=== PATIENT | male | born 1945 | race Caucasian/White ===

== ENCOUNTER 2018-12-16 15:51 | Emergency (ER) | payer OTHER ==
[2018-12-16 17:18] LABS: Absolute Lymphocytes (CBC) 1.2 K/uL (0.7-4.9); Basophils % 0.6 % (0-1.3); Hematocrit 38.5 % (39.6-49.0); Lymphocytes % 20.8 % (15.3-44.8); MPV 7.4 fL (7.6-11.3); RBC Red Blood Cell Count 4.49 M/uL (4.33-5.43)
--- NOTE | 2018-12-16 17:31 | EKG ---
Test Date: 2018-12-16 Test Time: 16:51:21 Director Business Travel: [employer] MEASUREMENT RESULTS: Intervals: Rate: 66 NH: 174 QRSD: 70 QT: 400 QTc: 419 [place]: P: 23 NH: 174 QRS: 28 T: 52 INTERPRETIVE STATEMENTS: Normal sinus rhythm Low voltage QRS Borderline ECG Compared to ECG 07/22/2014 10:15:56 Low QRS voltage now present Ventricular premature complex(es) no longer present T-wave abnormality no longer present Electronically Signed On 12-16-18 17:30:21 CDT by Pieter Jackson
[2018-12-16 17:42] LABS: BUN Blood Urea Nitrogen 14 mg/dL (7-18); Bicarbonate 31 mmol/L (21-32); Glucose Level 94 mg/dL (74-106); Magnesium 2.1 mg/dL (1.8-2.4); Potassium 4.2 mmol/L (3.5-5.1); Sodium Level 139 mmol/L (136-145); Troponin (Emerg Dept Use Only) < 0.02 ng/mL (0.0-0.045)
--- NOTE | 2018-12-16 17:52 | RAD REPORT ---
EXAM DESCRIPTION: CT - Head C Spine Mpr Wo Con - 12/16/2018 5:39 pm CLINICAL HISTORY: Right sided numbness COMPARISON: 2014 MRI brain TECHNIQUE: Computed axial tomography of the head and cervical spine was obtained. Sagittal and coronal reconstruction was performed. All CT scans are performed using dose optimization technique as appropriate and may include automated exposure control or mA/KV adjustment according to patient size. FINDINGS: Large area of cystic encephalomalacia left cerebellum secondary to an old infarction. An intracranial bleed is not seen. Ventricles are normal caliber. No extra-axial fluid collection. Fluid within the sinuses/mastoids is not noted A cervical fracture is not visualized. No dislocation is noted. Spondylosis C5-6 and C6-7. Moderate n arrowing of the right neural foramina C5-6. 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
--- NOTE | 2018-12-16 18:18 | RAD REPORT ---
EXAM DESCRIPTION: MRI - Brain Wo Cont - 12/16/2018 6:02 pm CLINICAL HISTORY: Right arm numbness COMPARISON: Head CT December 16, 2017 TECHNIQUE: Axial, sagittal, and coronal magnetic images of the brain were obtained. Contrast was not requested FINDINGS: Large area of cystic encephalomalacia left occipital lobe secondary to an old infarct. Diffusion-weighted/ADC mapping does not reveal evidence of acute infarction. The ventricles are normal caliber. An extra-axial fluid collection is not present The sinuses and mastoids are clear. IMPRESSION: Large old infarct left occipital lobe
--- NOTE | 2018-12-16 18:29 | EDPHYS ---
Physician Documentation [facility] Name: Shay Bearden Age: 73 yrs Sex: Male : 1945 Arrival Date: 12/16/2018 Time: 15:52 Bed 26 Private MD: ED Physician Zeus Atkinson HPI: 12/16 16:47 This 73 yrs old Male presents to ER via Ambulatory with complaints of r side rn tingling. 16:47 The patient presents to the emergency department with paresthesias of the right lower rn extremity, that is mild, right upper extremity, that is mild. Onset: The symptoms/episode began/occurred 3 day(s) ago. Context: occurred while the patient was at rest. Severity of symptoms: At their worst the symptoms were mild in the emergency department the symptoms are unchanged. Current symptoms: paresthesias. The patient has experienced a previous episode. The patient has been recently seen by a physician:. Reports right arm and leg tingling/tightness, over last 3 days, reports always there to an extent but seems to "move around", denies chest pain/sob/head injury. Takes warfarin for several previous strokes, only numbness to right leg is residual. Reports has never had it affect right arm before. No weakness. No coordination issues. . Historical: - Allergies: 15:58 No Known Allergies; la1 - PMHx: 15:58 CVA; la1 - Immunization history:: Adult Immunizations up to date. - Social history:: Smoking status: Patient/guardian denies using tobacco. - Ebola Screening: : No symptoms or risks identified at this time. - Family history:: not pertinent. - Hospitalizations: : No recent hospitalization is reported. ROS: 16:50 Constitutional: Negative for fever, chills, and weight loss, Eyes: Negative for injury, rn pain, redness, and discharge, Neck: Negative for injury, pain, and swelling, Cardiovascular: Negative for chest pain, palpitations, and edema, Respiratory: Negative for shortness of breath, cough, wheezing, and pleuritic chest pain, Abdomen/GI: Negative for abdominal pain, nausea, vomiting, diarrhea, and constipation, MS/Extremity: Negative for injury and deformity, Neuro: Negative for headache, weakness, and seizure. Exam: 16:50 Constitutional: This is a well developed, well nourished patient who is awake, alert, rn and in no acute distress. Head/Face: Normocephalic, atraumatic. ENT: MMM Neck: Trachea midline, no thyromegaly or masses palpated, and no cervical lymphadenopathy. Supple, full range of motion without nuchal rigidity, or vertebral point tenderness. No Meningismus. Cardiovascular: Regular rate and rhythm. No pulse deficits. Respiratory: No increased work of breathing, no retractions or nasal flaring. Abdomen/GI: soft, non-tender, + moderate ventral hernia MS/ Extremity: Pulses equal, no cyanosis. Neurovascular intact. Full, normal range of motion. Equal circumference. Neuro: Awake and alert, GCS 15, oriented to person, place, time, and situation. Cranial nerves II-XII grossly intact. Motor strength 5/5 in all extremities. Mild decreased sensation to soft touch RUE/RLE. Cerebellar exam normal. Normal gait. 18:17 ECG was reviewed by the Attending Physician. rn Vital Signs: 15:59 BP 136 / 68; Pulse 80; Resp 16; Temp 98.6; Pulse Ox 100% on R/A; Weight 140.61 kg; la1 Height 6 ft. 0 in. (182.88 cm); 17:12 BP 131 / 64; Pulse 62; Resp 9; Pulse Ox 96% on R/A; rv 18:00 BP 129 / 66; Pulse 65; Resp 15; Pulse Ox 100% on R/A; rv 18:30 BP 130 / 65; Pulse 64; Resp 16; Pulse Ox 100% on R/A; rv 15:59 Body Mass Index 42.04 (140.61 kg, 182.88 cm) la1 MDM: 16:31 Patient medically screened. rn 18:25 Data reviewed: vital signs, nurses notes, lab test result(s), EKG, radiologic studies, rn CT scan, MRI, and as a result, I will discharge patient. Counseling: I had a detailed discussion with the patient and/or guardian regarding: the historical points, exam findings, and any diagnostic results supporting the discharge/admit diagnosis, lab results, radiology results, the need for outpatient follow up, to return to the emergency department if symptoms worsen or persist or if there are any questions or concerns that arise at home. Response to treatment: the patient's symptoms have mildly improved after treatment, and as a result, I will discharge patient. Special discussion: I discussed with the patient/guardian in detail that at this point there is no indication for admission to the hospital. It is understood, however, that if the symptoms persist or worsen the patient needs to return immediately for re-evaluation. Based on the history and exam findings, there is no indication for further emergent testing or inpatient evaluation. I discussed with the patient/guardian the need to see the neurologist for further evaluation of the symptoms. ED course: Pt with vague symptoms that patient states not same as previous strokes. CT head and cspine without acute findings, + spondylosis of cervical vertebrae that could explain right arm paresthesias. Patient does states have residual symptoms in right leg from previous CVA. MRI negative for acute stroke. Will dc home with steroids and neuro f/u for possible neuropathy or radiculopathy. . 12/16 16:44 Order name: Troponin (emerg Dept Use Only); Complete Time: 18:16 rn 12/16 16:44 Order name: Basic Metabolic Panel; Complete Time: 18:16 rn 12/16 16:44 Order name: CBC with Diff; Complete Time: 18:16 rn 12/16 16:44 Order name: Magnesium; Complete Time: 18:16 rn 12/16 16:44 Order name: EKG; Complete Time: 16:44 rn 12/16 16:44 Order name: Cardiac monitoring; Complete Time: 17:06 rn 12/16 16:44 Order name: EKG - Nurse/Tech; Complete Time: 17:06 rn 12/16 16:44 Order name: IV Saline Lock; Complete Time: 17:06 rn 12/16 16:44 Order name: O2 Sat Monitoring; Complete Time: 17:06 rn 12/16 16:44 Order name: Brain Wo Cont MRI; Complete Time: 18:25 rn 12/16 16:50 Order name: CT Head C Spine; Complete Time: 18:16 rn EC:17 Rate is 66 beats/min. Rhythm is regular. QRS [place] is Normal. HI interval is normal. QRS rn interval is normal. QT interval is normal. No Q waves. T waves are Normal. No ST changes noted. Clinical impression: NSR w/ Non-specific ST/T Changes. Interpreted by me. Reviewed by me. Administered Medications: No medications were administered Disposition: 12/16/18 18:28 Discharged to Home. Impression: Paresthesia of skin. - Condition is Stable. - Discharge Instructions: Paresthesia. - Prescriptions for Medrol ([place]) 4 mg Oral Tablets, Dose Pack - take 1 tablet by ORAL route as directed - follow package instructions; 1 packet. - Medication Reconciliation Form, Thank You Letter, Antibiotic Education, Prescription Opioid Use form. - Follow up: Private Physician; When: As needed; Reason: Recheck today's complaints, Re-evaluation by your physician. - Problem is new. - Symptoms have improved. Signatures: Dispatcher [employer] EDMS Zeus Atkinson MD MD rn Nghia Kerr RN RN la1 Jordi Tomas RN RN rv Corrections: (The following items were deleted from the chart) 16:53 16:44 PROTIME (+INR)+COAG.LAB.BRZ ordered. EDWY EDWY 16:54 16:45 Head Brain Wo Cont+CT.RAD.BRZ ordered. [facility] EDWY 18:39 18:28 12/16/2018 18:28 Discharged to Home. Impression: Paresthesia of skin. Condition rv is Stable. Forms are Medication Reconciliation Form, Thank You Letter, Antibiotic Education, Prescription Opioid Use. Follow up: Private Physician; When: As needed; Reason: Recheck today's complaints, Re-evaluation by your physician. Problem is new. Symptoms have improved. rn
--- NOTE | 2018-12-16 18:29 | ER ---
Nurse's Notes [facility] Name: Shay Bearden Age: 73 yrs Sex: Male : 1945 Arrival Date: 12/16/2018 Time: 15:52 Bed 26 Private MD: Diagnosis: Paresthesia of skin Presentation: 12/16 15:57 Presenting complaint: Patient states: for the last 3-4 days I have been having tingling la1 on my right side including arms and legs, previous CVA on with right sided deficits a few years ago. VAN negative, taking warfarin. Transition of care: patient was not received from another setting of care. Onset of symptoms was December 16, 2018. Risk Assessment: Do you want to hurt yourself or someone else? Patient reports no desire to harm self or others. Initial Sepsis Screen: Does the patient meet any 2 criteria? No. Patient's initial sepsis screen is negative. Does the patient have a suspected source of infection? No. Patient's initial sepsis screen is negative. Care prior to arrival: None. 15:57 Method Of Arrival: Ambulatory la1 15:57 Acuity: DIDI 3 la1 Historical: - Allergies: 15:58 No Known Allergies; la1 - PMHx: 15:58 CVA; la1 - Immunization history:: Adult Immunizations up to date. - Social history:: Smoking status: Patient/guardian denies using tobacco. - Ebola Screening: : No symptoms or risks identified at this time. - Family history:: not pertinent. - Hospitalizations: : No recent hospitalization is reported. Screenin:11 Abuse screen: Denies threats or abuse. Denies injuries from another. Nutritional rv screening: No deficits noted. Tuberculosis screening: No symptoms or risk factors identified. Fall Risk None identified. Assessment: 17:10 General: Appears in no apparent distress. comfortable, Behavior is calm, cooperative. rv Pain: Denies pain. Neuro: Level of Consciousness is awake, alert, obeys commands, Oriented to person, place, time, situation. Neuro: Reports tingling sensation, right. Cardiovascular: Patient's skin is warm and dry. Respiratory: Airway is patent. GI: No signs and/or symptoms were reported involving the gastrointestinal system. : No signs and/or symptoms were reported regarding the genitourinary system. EENT: No signs and/or symptoms were reported regarding the EENT system. Derm: Skin is intact. Musculoskeletal: No signs and/or symptoms reported regarding the musculoskeletal system. 18:34 Reassessment: Patient appears in no apparent distress at this time. Patient and/or rv family updated on plan of care and expected duration. Pain level reassessed. Patient is alert, oriented x 3, equal unlabored respirations, skin warm/dry/pink. 18:34 General: Appears in no apparent distress. comfortable, Behavior is calm, cooperative. rv Neuro: No deficits noted. Vital Signs: 15:59 BP 136 / 68; Pulse 80; Resp 16; Temp 98.6; Pulse Ox 100% on R/A; Weight 140.61 kg; la1 Height 6 ft. 0 in. (182.88 cm); 17:12 BP 131 / 64; Pulse 62; Resp 9; Pulse Ox 96% on R/A; rv 18:00 BP 129 / 66; Pulse 65; Resp 15; Pulse Ox 100% on R/A; rv 18:30 BP 130 / 65; Pulse 64; Resp 16; Pulse Ox 100% on R/A; rv 15:59 Body Mass Index 42.04 (140.61 kg, 182.88 cm) la1 ED Course: 15:52 Patient arrived in ED. as 15:58 Triage completed. la1 15:59 Arm band placed on right wrist. la1 16:31 Zeus Atkinson MD is Attending Physician. rn 16:32 Jordi Tomas RN is Primary Nurse. rv 17:03 EKG done, by copier field service technician. reviewed by Zeus Atkinson MD. sm3 17:11 Patient has correct armband on for positive identification. Bed in low position. Call rv light in reach. Side rails up X 1. timers inspector on. Pulse ox on. NIBP on. 17:11 Inserted saline lock: 20 gauge in left antecubital area, using aseptic technique. Blood rv collected. 17:40 CT Head C Spine In Process Unspecified. EDMS 17:57 Brain Wo Cont MRI In Process Unspecified. EDMS 18:35 No provider procedures requiring assistance completed. IV discontinued, intact, rv bleeding controlled, No redness/swelling at site. Pressure dressing applied. Administered Medications: No medications were administered Outcome: 18:28 Discharge ordered by . rn 18:35 Discharged to home ambulatory. rv 18:35 Condition: good 18:35 Discharge instructions given to patient, Instructed on discharge instructions, follow up and referral plans. medication usage, Demonstrated understanding of instructions, follow-up care, medications, Prescriptions given X 1. 18:39 Patient left the ED. rv Signatures: Dispatcher [employer] Mckenzie Castañeda Roman, MD MD rn Attema, Lee, RN RN Dedra Buenrostro 3 Jordi Tomas RN RN rv
[2018-12-16 19:46] VITALS: TEMP 98.6
[2018-12-16 19:48] VITALS: O2SAT 100
[2018-12-16 19:49] VITALS: BP 130/65
== END 2018-12-16 18:39 | disposition home or self-care (01) ==
LOC: ER 15:51
DX: R20.2 Paresthesia of skin (principal); Z79.01 Long term (current) use of anticoagulants; Z86.73 Personal history of transient ischemic attack (TIA), and cerebral infarction without residual deficits
CPT/HCPCS: 36415; 70450; 70551; 72125; 80048; 83735; 84484; 85025; 93005; 99284

== ENCOUNTER 2019-03-28 14:41 | Observation (INO) | payer OTHER ==
[2019-03-28] MEDS ORDERED: NA CHLORIDE 0.9% 1,000 ML ONE (15:56)
[2019-03-28] MEDS ORDERED: PIPER/TAZO/NS 3.375gm 3.375 GM/100 ML BAG ONE (15:56)
[2019-03-28 16:01] LABS: Basophils % 0.4 % (0-1.3); Hematocrit 40.4 % (39.6-49.0); Lymphocytes % 15.3 % (15.3-44.8); MPV 7.6 fL (7.6-11.3); RBC Red Blood Cell Count 4.64 M/uL (4.33-5.43)
--- NOTE | 2019-03-28 16:03 | ER ---
Nurse's Notes [facility] Name: Shay Bearden Age: 74 yrs Sex: Male : 1945 Arrival Date: 03/28/2019 Time: 14:45 Bed 24 Private MD: Hugo Alexander T Diagnosis: Cellulitis and acute lymphangitis of other parts of limb-failed outpt treatment;Obesity, unspecified;Unspecified kidney failure Presentation: 03/28 14:54 Presenting complaint: Worsening RLE redness and swelling x 1 week. Transition of care: hb patient was not received from another setting of care. Onset of symptoms was March 28, 2019. Risk Assessment: Do you want to hurt yourself or someone else? Patient reports no desire to harm self or others. Care prior to arrival: None. 14:54 Method Of Arrival: Ambulatory 14:54 Acuity: DIDI 3 hb 14:54 Initial Sepsis Screen: Does the patient meet any 2 criteria? No. Patient's initial hb sepsis screen is negative. Does the patient have a suspected source of infection? No. Patient's initial sepsis screen is negative. Historical: - Allergies: 14:56 No Known Allergies; hb - PMHx: 14:56 CVA; hb - Immunization history:: Adult Immunizations up to date. - Coronavirus screen:: The patient has NOT traveled to [place], [place], or [place] in the past 14 days. The patient has NOT had contact with known/suspected case of Coronavirus? Proceed with normal triage procedures. - Social history:: Smoking status: Patient denies any tobacco usage or history of. - Family history:: not pertinent. - Ebola Screening: : No symptoms or risks identified at this time. Screenin:06 Abuse screen: Denies threats or abuse. Denies injuries from another. Nutritional mg2 screening: No deficits noted. Tuberculosis screening: No symptoms or risk factors identified. 16:35 Fall Risk IV access (20 points). mg2 Assessment: 16:32 General: Appears in no apparent distress. comfortable, Behavior is calm, cooperative. mg2 Pain: Complains of pain in right leg. Neuro: Level of Consciousness is awake, alert, obeys commands, Oriented to person, place, time, situation. Cardiovascular: Capillary refill < 3 seconds Patient's skin is warm and dry. Respiratory: Airway is patent Respiratory effort is even, unlabored, Respiratory pattern is regular, symmetrical. GI: No signs and/or symptoms were reported involving the gastrointestinal system. : No signs and/or symptoms were reported regarding the genitourinary system. EENT: No signs and/or symptoms were reported regarding the EENT system. Derm: Skin is intact, is healthy with good turgor, Skin is pink, warm \T\ dry. normal, Rash noted that is on right leg. Musculoskeletal: Circulation, motion, and sensation intact. Capillary refill < 3 seconds. 17:20 Reassessment: Patient appears in no apparent distress at this time. Patient and/or mg2 family updated on plan of care and expected duration. Pain level reassessed. Patient is alert, oriented x 3, equal unlabored respirations, skin warm/dry/pink. hospitalist came and advised the patient for admission. patient agreed. Vital Signs: 14:55 BP 139 / 68; Pulse 84; Resp 16; Temp 97.5; Pulse Ox 97% on R/A; Weight 140.61 kg; hb Height 6 ft. (182.88 cm); Pain 3/10; 16:00 BP 135 / 80; Pulse 71; Resp 17; Temp 97; Pulse Ox 98% on R/A; mg2 17:32 BP 114 / 55; Pulse 63; Resp 18; Pulse Ox 100% on R/A; mg2 18:20 BP 120 / 60; Pulse 81; Resp 18; Temp 98; Pulse Ox 100% on R/A; mg2 14:55 Body Mass Index 42.04 (140.61 kg, 182.88 cm) hb ED Course: 14:45 Patient arrived in ED. mr 14:45 Hugo Alexander MD is Private Physician. mr 14:55 Triage completed. hb 14:56 Arm band placed on. hb 15:00 Stepan Hancock MD is Attending Physician. geovani 15:02 Kenyon Crespo, DREW is Primary Nurse. mg2 15:40 Inserted saline lock: 20 gauge in right antecubital area, using aseptic technique. wh Blood collected. 15:58 XRAY Chest (1 view) In Process Unspecified. EDMS 16:00 Tez Leal is Hospitalizing Provider. geovani 16:01 Skylar Edgar MD is Hospitalizing Provider. geovani 16:35 Patient has correct armband on for positive identification. mg2 17:11 US Extremity Venous W Compression Andrzej In Process Unspecified. EDMS 18:33 No provider procedures requiring assistance completed. Patient admitted, IV remains in mg2 place. Administered Medications: 16:10 Drug: NS 0.9% 1000 ml Route: IV; Rate: 125 ml/hr; Site: right antecubital; 18:30 Follow up: Response: No adverse reaction; IV Status: Infusion continued upon admission mg2 16:10 Drug: Zosyn 3.375 grams Route: IVPB; Infused Over: 60 mins; Site: right antecubital; 18:29 Follow up: Response: No adverse reaction; IV Status: Completed infusion mg2 17:14 Drug: vancoMYCIN 2 grams Route: IVPB; Rate: calculated rate; [place]: right antecubital[place] [facility] [place] Follow up: Response: No adverse reaction; IV Status: Infusion continued upon admission mg2 Outcome: 16:01 Decision to Hospitalize by Provider. geovani 18:34 Admitted to Med/surg accompanied by tech, via wheelchair, room 224, with chart, Report mg2 called to DREW Campbell 18:34 Condition: stable 18:34 Instructed on the need for admit, Demonstrated understanding of instructions. 18:56 Patient left the ED. mg2 Signatures: Dispatcher [employer] Stepan George MD MD cha Rivera, Mary mr Joyce Morgan RN RN hb Habalo, Winsy wh Gardose, Michele, RN RN mg2
--- NOTE | 2019-03-28 16:03 | EDPHYS ---
Physician Documentation [facility] Name: Shay Bearden Age: 74 yrs Sex: Male : 1945 Arrival Date: 03/28/2019 Time: 14:45 Bed 24 Private MD: Hugo Alexander T ED Physician Stepan Hancock HPI: 03/28 15:26 This 74 yrs old Male presents to ER via Ambulatory with complaints of Leg geovani Infection. 15:26 The patient presents with decreased range of motion, pain, swelling, tenderness. The geovani complaints affect the lateral aspect of right calf, right calf, medial aspect of right calf and right rincon. Context: The problem was sustained at home. Onset: The symptoms/episode began/occurred 5 day(s) ago. Modifying factors: The symptoms are alleviated by elevating leg, the symptoms are aggravated by movement. Associated signs and symptoms: The patient has no apparent associated signs or symptoms. Severity of symptoms: At their worst the symptoms were moderate, in the emergency department the symptoms are unchanged. The patient has experienced similar episodes in the past, several times. Historical: - Allergies: 14:56 No Known Allergies; hb - PMHx: 14:56 CVA; hb - Immunization history:: Adult Immunizations up to date. - Coronavirus screen:: The patient has NOT traveled to [place], [place], or [place] in the past 14 days. The patient has NOT had contact with known/suspected case of Coronavirus? Proceed with normal triage procedures. - Social history:: Smoking status: Patient denies any tobacco usage or history of. - Family history:: not pertinent. - Ebola Screening: : No symptoms or risks identified at this time. ROS: 15:27 Constitutional: Negative for fever, chills, and weight loss, Eyes: Negative for injury, geovani pain, redness, and discharge, ENT: Negative for injury, pain, and discharge, Neck: Negative for injury, pain, and swelling, Cardiovascular: Negative for chest pain, palpitations, and edema, Respiratory: Negative for shortness of breath, cough, wheezing, and pleuritic chest pain, Abdomen/GI: Negative for abdominal pain, nausea, vomiting, diarrhea, and constipation, Back: Negative for injury and pain, : Negative for injury, bleeding, discharge, and swelling, Skin: Negative for injury, rash, and discoloration, Neuro: Negative for headache, weakness, numbness, tingling, and seizure, Allergy/Immunology: Negative for hives, rash, and allergies, Endocrine: Negative for neck swelling, polydipsia, polyuria, polyphagia, and marked weight changes, Hematologic/Lymphatic: Negative for swollen nodes, abnormal bleeding, and unusual bruising. 15:27 MS/extremity: Positive for decreased range of motion, pain, swelling, tenderness, of the right leg. Exam: 15:27 Constitutional: This is a well developed, well nourished patient who is awake, alert, geovani and in no acute distress. Head/Face: Normocephalic, atraumatic. Eyes: Pupils equal round and reactive to light, extra-ocular motions intact. Lids and lashes normal. Conjunctiva and sclera are non-icteric and not injected. Cornea within normal limits. Periorbital areas with no swelling, redness, or edema. ENT: Nares patent. No nasal discharge, no septal abnormalities noted. Tympanic membranes are normal and external auditory canals are clear. Oropharynx with no redness, swelling, or masses, exudates, or evidence of obstruction, uvula midline. Mucous membranes moist. Neck: Trachea midline, no thyromegaly or masses palpated, and no cervical lymphadenopathy. Supple, full range of motion without nuchal rigidity, or vertebral point tenderness. No Meningismus. Chest/axilla: Normal chest wall appearance and motion. Nontender with no deformity. No lesions are appreciated. Cardiovascular: Regular rate and rhythm with a normal S1 and S2. No gallops, murmurs, or rubs. Normal PMI, no JVD. No pulse deficits. Respiratory: Lungs have equal breath sounds bilaterally, clear to auscultation and percussion. No rales, rhonchi or wheezes noted. No increased work of breathing, no retractions or nasal flaring. Abdomen/GI: Soft, non-tender, with normal bowel sounds. No distension or tympany. No guarding or rebound. No evidence of tenderness throughout. Back: No spinal tenderness. No costovertebral tenderness. Full range of motion. Male : Normal genitalia with no discharge or lesions. Skin: Warm, dry with normal turgor. Normal color with no rashes, no lesions, and no evidence of cellulitis. Neuro: Awake and alert, GCS 15, oriented to person, place, time, and situation. Cranial nerves II-XII grossly intact. Motor strength 5/5 in all extremities. Sensory grossly intact. Cerebellar exam normal. Normal gait. Psych: Awake, alert, with orientation to person, place and time. Behavior, mood, and affect are within normal limits. 15:27 Musculoskeletal/extremity: Circulation is intact in all extremities. Sensation intact. Compartment Syndrome exam of affected extremity: is normal. DVT Exam: pain, swelling, tenderness, of the right leg, of the lateral aspect of right calf, right calf, medial aspect of right calf and right rincon. Vital Signs: 14:55 BP 139 / 68; Pulse 84; Resp 16; Temp 97.5; Pulse Ox 97% on R/A; Weight 140.61 kg; hb Height 6 ft. (182.88 cm); Pain 3/10; 16:00 BP 135 / 80; Pulse 71; Resp 17; Temp 97; Pulse Ox 98% on R/A; mg2 17:32 BP 114 / 55; Pulse 63; Resp 18; Pulse Ox 100% on R/A; mg2 18:20 BP 120 / 60; Pulse 81; Resp 18; Temp 98; Pulse Ox 100% on R/A; mg2 14:55 Body Mass Index 42.04 (140.61 kg, 182.88 cm) hb MDM: 15:00 Patient medically screened. [facility] 15:29 Data reviewed: vital signs, nurses notes, lab test result(s), EKG, radiologic studies, geovani plain films, ultrasound. 03/28 15:26 Order name: Basic Metabolic Panel [facility] 03/28 15:26 Order name: CBC with Diff [facility] 03/28 15:26 Order name: LFT's [facility] 03/28 15:26 Order name: Magnesium [facility] 03/28 15:26 Order name: NT PRO-BNP [facility] 03/28 15:26 Order name: PT-INR [facility] 03/28 15:26 Order name: Troponin (emerg Dept Use Only) [facility] 03/28 15:26 Order name: Blood Culture Adult (2) [facility] 03/28 15:26 Order name: Procalcitonin [facility] 03/28 15:27 Order name: Basic Metabolic Panel; Complete Time: 18:19 [facility] 03/28 15:27 Order name: CBC with Automated Diff; Complete Time: 18:19 [facility] 03/28 15:34 Order name: Liver (Hepatic) Function; Complete Time: 18:19 [facility] 03/28 15:35 Order name: Magnesium; Complete Time: 18:19 [facility] 03/28 15:35 Order name: NT PRO-BNP; Complete Time: 18:19 [facility] 03/28 15:26 Order name: XRAY Chest (1 view); Complete Time: 18:19 [facility] 03/28 15:26 Order name: EKG; Complete Time: 15:35 [facility] 03/28 15:26 Order name: Cardiac monitoring; Complete Time: 16:10 [facility] 03/28 15:26 Order name: EKG - Nurse/Tech; Complete Time: 16:10 [facility] 03/28 15:26 Order name: IV Saline Lock; Complete Time: 16:11 [facility] 03/28 15:26 Order name: US Extremity Venous W Compression Andrzej; Complete Time: 18:19 [facility] 03/28 15:35 Order name: Protime (+INR); Complete Time: 18:19 [facility] 03/28 15:35 Order name: Troponin (Emerg Dept Use Only); Complete Time: 18:19 [facility] 03/28 15:35 Order name: Blood Culture [facility] 03/28 15:35 Order name: Procalcitonin; Complete Time: 18:19 [facility] 03/28 17:17 Order name: CONS Pharmacy Consult [facility] 03/28 17:17 Order name: Heart Healthy [facility] 03/28 17:17 Order name: Protime (+INR) [facility] 03/28 15:26 Order name: Labs collected and sent; Complete Time: 16:11 [facility] 03/28 15:26 Order name: O2 Per Protocol; Complete Time: 16:11 [facility] 03/28 15:26 Order name: O2 Sat Monitoring; Complete Time: 16:11 [facility] Administered Medications: 16:10 Drug: NS 0.9% 1000 ml Route: IV; Rate: 125 ml/hr; Site: right antecubital; wh 18:30 Follow up: Response: No adverse reaction; IV Status: Infusion continued upon admission mg2 16:10 Drug: Zosyn 3.375 grams Route: IVPB; Infused Over: 60 mins; Site: right antecubital; wh 18:29 Follow up: Response: No adverse reaction; IV Status: Completed infusion mg2 17:14 Drug: vancoMYCIN 2 grams Route: IVPB; Rate: calculated rate; Site: right antecubital; mg2 18:30 Follow up: Response: No adverse reaction; IV Status: Infusion continued upon admission mg2 Disposition: 03/28/19 16:01 Hospitalization ordered by Skylar Edgar for Inpatient Admission. Preliminary diagnosis are Cellulitis and acute lymphangitis of other parts of limb - failed outpt treatment, Obesity, unspecified, Unspecified kidney failure. - Bed requested for Telemetry/MedSurg (Inpatient). - Status is Inpatient Admission. mg2 - Condition is Stable. - Problem is new. - Symptoms have improved. UTI on Admission? No Signatures: Dispatcher [employer] EDMS Aditi Cline RN RN dw Anderson, Corey, MD MD cha Baxter, Heather, RN RN hb Habalo, Winsy wh Botello, Elizabeth eb Gardose, Michele, RN RN mg2 Corrections: (The following items were deleted from the chart) 16:45 16:01 Hospitalization Ordered by Skylar Edgar MD for Inpatient Admission. Preliminary eb diagnosis is Cellulitis and acute lymphangitis of other parts of limb - failed outpt treatment; Obesity, unspecified. Bed requested for Telemetry/MedSurg (Inpatient). Status is Inpatient Admission. Condition is Stable. Problem is new. Symptoms have improved. UTI on Admission? No. geovani 17:58 16:45 03/28/2019 16:01 Hospitalization Ordered by Skylar Edgar MD for Inpatient dw Admission. Preliminary diagnosis is Cellulitis and acute lymphangitis of other parts of limb - failed outpt treatment; Obesity, unspecified. Bed requested for Telemetry/MedSurg (Inpatient). Status is Inpatient Admission. Condition is Stable. Problem is new. Symptoms have improved. UTI on Admission? No. eb 18:21 17:58 03/28/2019 16:01 Hospitalization Ordered by kSylar Edgar MD for Inpatient geovani Admission. Preliminary diagnosis is Cellulitis and acute lymphangitis of other parts of limb - failed outpt treatment; Obesity, unspecified. Bed requested for Telemetry/MedSurg (Inpatient). Status is Inpatient Admission. Condition is Stable. Problem is new. Symptoms have improved. UTI on Admission? No. dw 18:56 18:21 03/28/2019 16:01 Hospitalization Ordered by Skylar Edgar MD for Inpatient mg2 Admission. Preliminary diagnosis is Cellulitis and acute lymphangitis of other parts of limb - failed outpt treatment; Obesity, unspecified; Unspecified kidney failure. Bed requested for Telemetry/MedSurg (Inpatient). Status is Inpatient Admission. Condition is Stable. Problem is new. Symptoms have improved. UTI on Admission? No. geovani
[2019-03-28 16:07] LABS: Protime INR 2.78
--- NOTE | 2019-03-28 16:18 | RAD REPORT ---
EXAM DESCRIPTION: RAD - Chest Single View - 03/28/2019 3:58 pm CLINICAL HISTORY: COUGH Chest pain. COMPARISON: CHEST SINGLE VIEW dated 08/03/2014; CHEST SINGLE VIEW dated 07/22/2014; CHEST SINGLE VIEW d ated 07/17/2014 FINDINGS: Portable technique limits examination quality. Mild linear subsegmental atelectasis is present left lung base. The lungs are otherwise clear. The he art is normal in size. No displaced fractures. IMPRESSION: Mild linear subsegmental atelectasis left lung base.
[2019-03-28 16:26] LABS: ALT/SGPT 21 U/L (12-78); AST/SGOT 18 U/L (15-37); Albumin 3.4 g/dL (3.4-5.0); Alkaline Phosphatase 80 U/L (45-117); BUN Blood Urea Nitrogen 21 mg/dL (7-18); Bicarbonate 29 mmol/L (21-32); Bilirubin Direct 0.3 mg/dL (0-0.2); Bilirubin Total 1.1 mg/dL (0.2-1.0); Glucose Level 96 mg/dL (74-106); NT PRO-BNP 210 pg/mL (<125); Potassium 4.1 mmol/L (3.5-5.1); Protein, Total 6.5 g/dL (6.4-8.2); Sodium Level 139 mmol/L (136-145); Troponin (Emerg Dept Use Only) < 0.02 ng/mL (0.0-0.045)
[2019-03-28] MEDS ORDERED: VANCOMYCIN 1.5 GM in NA CHLORIDE 0.9% 500 ML IVPB ONE (17:00)
[2019-03-28] MEDS ORDERED: VANCOMYCIN 2 GM in NA CHLORIDE 0.9% 500 ML IVPB ONE (17:00)
[2019-03-28] MEDS ORDERED: ONDANSETRON 4 MG/2 ML VIAL IV PRN (17:08)
[2019-03-28] MEDS ORDERED: MORPHINE 2 MG/ML SYR IV PRN (17:08)
[2019-03-28] MEDS ORDERED: HYDRALAZINE HCL 20 MG/ML VIAL IV PRN (17:13)
--- NOTE | 2019-03-28 17:16 | RAD REPORT ---
EXAM DESCRIPTION: US - Extrem Venous W Compress Andrzej - 03/28/2019 5:11 pm CLINICAL HISTORY: Pain;Swelling Bilateral leg edema and swelling. COMPARISON: <Comparisons> TECHNIQUE: Real-time sonographic interrogation of the left and right lower extremity deep venous sys tems was performed. FINDINGS: Normal compressibility, flow augmentation, phasic flow and spontaneous flow is identified in both the left and right lower extremity deep venous systems. IMPRESSION: No sonographic evidence of left or right lower extremity deep venous thrombosis.
[2019-03-28] MEDS ORDERED: FUROSEMIDE 40 MG/4 ML VIAL IV ONE (18:00)
[2019-03-28 19:35] VITALS: BMI 42.3
[2019-03-28 20:05] LABS: Protime INR 2.83
[2019-03-28] MEDS: FAMOTIDINE 20 MG TAB PO SCH (20:34)
[2019-03-28] MEDS ORDERED: HEPARIN 5000 UNIT/ML 1 ML VIAL SQ SCH (21:00)
[2019-03-28 23:04] VITALS: O2SAT 95
[2019-03-29 00:24] LABS: Urine Appearance CLEAR; Urine Bilirubin NEGATIVE (NEG); Urine Blood NEGATIVE (NEG); Urine Color YELLOW; Urine Glucose NEGATIVE (NEG); Urine Protein NEGATIVE (NEG); Urine Specific Gravity 1.015 (1.005-1.030); Urine Urobilinogen 0.2 mg/dL (0.2-1.0)
[2019-03-29 00:44] LABS: Urine Microscopic Reflex NO UMIC
--- NOTE | 2019-03-29 03:11 | HP ---
Date of Admission: 03/28/2019 Presenting Complaint: Right lower extremity redness. History Of Present Illness: Shay Bearden 74-year-old male with history of CVA in the past with mild right hemiparesis, chronic lower extremity lymphedema with recurrent cellulitis in the past , typically treated with oral antibiotics. The patient presented today because of worsening leg swel ling with redness of the right lower leg. He states he was seen by his primary physician, Dr. Catherine aguilar nd was started on antibiotics 3 days ago. The patient developed a rash. He is unable to tell the na me of the antibiotics. His antibiotics were later switched to Bactrim and rifampin yesterday. The p atrichy only took 2 doses this morning and then came to the emergency room. He denies any fever or ch ills. He states he has a history of chronic lower extremity eczema for which he was treated with manuel roid many years ago. He denies any shortness of breath. He does not wear any compression stockings at home. Past Medical History: Significant for hypertension, history of CVA, history of chronic anticoagulati on due to CVA. Past Surgical History: None. Family History: Patient admits to history of high blood pressure, half brother with history of blood clots. Social History: Patient is a lifelong nonsmoker. No history of alcohol or illicit drug use. He amb ulates with the aid of a cane at baseline. He denies any illicit drug use. He resides in the [facility] with his spouse. Home Medications: The patient is unsure of full list. We will follow the list after nurses verify i t. Review of Systems: All systems reviewed x14 were negative except as mentioned above. Allergies: NO KNOWN DRUG ALLERGIES. Physical Examination: Vital Signs: On presentation in the ED, blood pressure 139/68, pulse of 84, respiratory rate of 16, temp 97.5, O2 saturation 97 on room air. Weight of 140 kg. General: Obese, elderly male, not in any distress, on nasal cannula O2 on room air. HEENT: Head is atraumatic, normocephalic. Pupils equal, reactive to light. Neck: No JVD. No carotid bruit. Respiratory: Good air entry. No crepitation. Cardiovascular: S1, S2. Rate and rhythm regular. GI: Abdomen is obese, but soft. Bowel sounds positive. No organomegaly. Rectal: Deferred. Musculoskeletal: Extremities with 2 to 3+ lower extremity edema, more prominent over the right lower leg. Multiple mild erythema over small papules on the right leg extending beneath knee region. No significant calf tenderness on movement of the leg. Left lower extremity also have similar, but abse nt erythema over the chronic leg swelling. No area of open ulceration noted. Areas of excoriation o f the skin around the flexure of the ankle on the right is noted. Neuro: Patient is alert, oriented. Cranial nerves 2 through 12 grossly intact. Laboratory Data: Chest x-ray shows mild linear subsegmental atelectasis, left lung base. Ultrasound of the lower extremity shows no evidence of DVT. WBC 6.3, hemoglobin 13, platelets 204. INR 2.7. PT 31. Sodium 139, potassium 4.1, creatinine 1.6. No previous to compare. Magnesium 2.0. ProBNP o f 210. Procalcitonin of less than 0.05. Impression: 1.Chronic lower extremity edema likely due to venous stasis. 2.Mild right lower extremity cellulitis. 3.Hypertension. 4.History of cerebrovascular accident. Plan: 1.We will admit patient to observation. We will manage patient with IV vancomycin and restart patie nt on trial of p.o. clindamycin. We will obtain blood culture x2; although, we follow area of meaghan vivas in a.m. if improving. The patient can be safely discharged on clindamycin and rifampin as patient did not really get full doses of rifampin and Bactrim. We will monitor repeat CBC in a.m. Given ch ronic lower extremity edema, need for compression stockings discussed with patient. We will start pa nigel on MYA hose while inpatient. DVT prophylaxis. Patient on Coumadin. We will resume Coumadin. INR therapeutic. 2.Advanced directives: The patient is a full code. Total time spent on review of record, discussion with patient, and evaluation, greater than 55 minute s. EO/MODL Voice ID: [id number]
[2019-03-29 06:39] LABS: Basophils % 0.3 % (0-1.3); Hematocrit 37.8 % (39.6-49.0); Lymphocytes % 14.1 % (15.3-44.8); MPV 7.5 fL (7.6-11.3); RBC Red Blood Cell Count 4.42 M/uL (4.33-5.43)
[2019-03-29 06:47] LABS: Albumin 3.2 g/dL (3.4-5.0); Bilirubin Total 0.8 mg/dL (0.2-1.0); Potassium 4.2 mmol/L (3.5-5.1); Protein, Total 6.2 g/dL (6.4-8.2)
[2019-03-29] MEDS: FAMOTIDINE 20 MG TAB PO SCH (07:42)
[2019-03-29] MEDS ORDERED: VANCOMYCIN 1.25 GM in NA CHLORIDE 0.9% 250 ML IVPB SCH (09:00)
--- NOTE | 2019-03-29 12:19 | P.DS ---
Admission Date: 03/28/19 Discharge Date: 03/29/19 Disposition: ROUTINE DISCHARGE Discharge Condition: GOOD Brief History of Present Illness: Patient with history of chronic lower extremity edema presented for new onsets redness over the right lower extremity. Hospital Course: Patient on admission was diagnosed with right lower extremity cellulitis. He has chronic lower extremity edema especially mall for the right side from previous CVA was felt to be due to venous insufficiency on causing his recurrent cellulitis. Since he was previously on bactrim and rifampin started 1 day prior to presentation, patient was continued on Rifmapin and added Omnicef. He did not have any leukocytosis or elevated pro calcitonin was not felt to be septic. He was also advised to start compression stockings. Application on how to use Paul wrap was instructed Vital Signs/Physical Exam: Temp Pulse Resp BP Pulse Ox 97.9 F 82 18 103/53 L 95 03/29/19 08:00 03/29/19 08:00 03/29/19 08:00 03/29/19 08:00 03/29/19 08:00 General: Alert, In no apparent distress, Oriented x3 HEENT: Atraumatic, Normocephalic Neck: Supple, 2+ carotid pulse no bruit Respiratory: Clear to auscultation bilaterally, Normal air movement Cardiovascular: Normal pulses, Regular rate/rhythm, Normal S1 S2, Edema Gastrointestinal: Normal bowel sounds, Soft and benign, W/out succussion splash Musculoskeletal: Swelling Integumentary: Warmth (decreasing over RLE) Neurological: Normal gait, Normal speech, Normal strength at 5/5 x4 extr Laboratory Data at Discharge: WBC 7.1 K/uL (4.3-10.9) 03/29/19 05:54 Hgb 12.8 g/dL (13.6-17.9) L 03/29/19 05:54 Hct 37.8 % (39.6-49.0) L 03/29/19 05:54 Plt Count 198 K/uL (152-406) 03/29/19 05:54 PT 32.1 SECONDS (9.5-12.5) H 03/28/19 19:50 INR 2.83 03/28/19 19:50 Sodium 142 mmol/L (136-145) 03/29/19 05:54 Potassium 4.2 mmol/L (3.5-5.1) 03/29/19 05:54 BUN 25 mg/dL (7-18) H 03/29/19 05:54 Creatinine 1.42 mg/dL (0.55-1.3) H 03/29/19 05:54 Glucose 100 mg/dL (74-106) 03/29/19 05:54 Magnesium 2.0 mg/dL (1.8-2.4) 03/28/19 15:40 Total Bilirubin 0.8 mg/dL (0.2-1.0) 03/29/19 05:54 AST 16 U/L (15-37) 03/29/19 05:54 ALT 17 U/L (12-78) 03/29/19 05:54 Alkaline Phosphatase 60 U/L (45-117) 03/29/19 05:54 Home Medications: Acetaminophen 500 mg PO Q6HP PRN 03/28/19 Rifampin [Rifadin] 300 mg PO BID 03/28/19 Warfarin Sodium [Coumadin*] 5 mg PO DAILY 03/28/19 Cefdinir [Omnicef] 300 mg PO BID #14 capsule 03/29/19 New Medications: Cefdinir [Omnicef] 300 mg PO BID #14 capsule Patient Discharge Instructions: -Apply ACEI wrap to legs daily. - can remove wrap at night time. - discuss with your PCP for a referal to a DME for customized compression stockings Diet: Low sodium Activity: Ad soraida Physician Review: Patient Assessed, Agree with Above Assessment and Plan Time spent managing pt's care (in minutes): 35
[2019-03-29 13:34] VITALS: BP 106/56; TEMP 97.1
[2019-03-29] MEDS ORDERED: VANCOMYCIN 2 GM in NA CHLORIDE 0.9% 500 ML IVPB SCH (17:00)
--- NOTE | 2019-03-30 05:29 | EKG ---
Test Date: 2019-03-28 Test Time: 16:01:28 Manufacturing Sales Representative: VICTORIA MEASUREMENT RESULTS: Intervals: Rate: 69 DC: 158 QRSD: 76 QT: 302 QTc: 323 Naselle: P: 24 DC: 158 QRS: 5 T: 38 INTERPRETIVE STATEMENTS: Normal sinus rhythm Nonspecific T wave abnormality Abnormal ECG Compared to ECG 12/16/2018 16:51:21 T-wave abnormality now present Electronically Signed On 03-30-19 05:28:49 PATIENT RELATIONS LIAISON by Pieter Jackson
== END 2019-03-29 12:32 | disposition home or self-care (01) ==
LOC: ER 14:41 → ERHOLD 17:24 → 2ND 18:29
PROVIDERS: ADMIT Internal Medicine; ATTEND Internal Medicine
DX: L03.115 Cellulitis of right lower limb (principal); I69.351 Hemiplegia and hemiparesis following cerebral infarction affecting right dominant side; I10 Essential (primary) hypertension
CPT/HCPCS: 96365; 96368; 93005; 87040 ×2; 85025 ×2; 80048; 36415; 83735; 85610 ×2; 80076; 81003; 84484; 80053; 84145; 83880; 71045; 93970; 99285; 96366; J1940; J2543; J7040; J7030; G0378 ×3

== ENCOUNTER 2019-12-22 15:20 | Inpatient (IN) | payer OTHER ==
[2019-12-22] MEDS ORDERED: DIPHENHYDRAMINE 50 MG/ML VIAL ONE (18:05)
[2019-12-22] MEDS ORDERED: FAMOTIDINE 20 MG/2 ML VIAL IV ONE (18:05)
[2019-12-22 18:14] LABS: Absolute Lymphocytes (CBC) 0.9 K/uL (0.7-4.9); Basophils % 0.2 % (0-1.3); Hematocrit 42.8 % (39.6-49.0); MPV 7.4 fL (7.6-11.3); RBC Red Blood Cell Count 4.98 M/uL (4.33-5.43)
[2019-12-22 18:40] LABS: Albumin 3.5 g/dL (3.4-5.0); Bilirubin Direct 0.6 mg/dL (0-0.2); Bilirubin Total 1.5 mg/dL (0.2-1.0); Blood Morphology Comment NOT SEEN (NOT SEEN); Platelet Estimate ADEQ; Potassium 3.9 mmol/L (3.5-5.1); Protein, Total 7.1 g/dL (6.4-8.2); Toxic Granulation 1+; White Blood Cell Scan OK (OK)
[2019-12-22 18:47] LABS: Thyroid Stimulating Hormone 7.04 uIU/mL (0.360-3.740)
--- NOTE | 2019-12-22 19:01 | EDPHYS ---
Physician Documentation [facility] Name: Shay Bearden Age: 74 yrs Sex: Male : 1945 Arrival Date: 12/22/2019 Time: 15:23 Bed 16 Private MD: Hugo Alexander T ED Physician Stepan Hancock HPI: 12/21 18:57 This 74 yrs old Male presents to ER via Wheelchair with complaints of kb Allergic Reaction. 18:57 The patient presents with redness of skin. Onset: The symptoms/episode began/occurred kb today. Associated signs and symptoms: Pertinent positives: rash. Possible causes: At home the patient or guardian has treated the symptoms with nothing. Severity of symptoms: At their worst the symptoms were moderate in the emergency department the symptoms are unchanged. The patient has not experienced similar symptoms in the past. The patient has been recently seen by a physician:. Pt reports he was prescribed 2 antibiotics that he has had before for cellulitis and levothyroxine that is a new medication. States he took his first dose of all of those at 1100 today and since then has had itching and shaking that he hasn't been able to control. . Historical: - Allergies: 16:25 Sulfa (Sulfonamide Antibiotics); iw - PMHx: 16:25 CVA; iw - Immunization history:: Adult Immunizations up to date. - Social history:: Smoking status: Patient denies any tobacco usage or history of. ROS: 18:55 Cardiovascular: Negative for chest pain, palpitations, and edema, Respiratory: Negative kb for shortness of breath, cough, wheezing, and pleuritic chest pain, Abdomen/GI: Negative for abdominal pain, nausea, vomiting, diarrhea, and constipation, MS/Extremity: Negative for injury and deformity, Neuro: Negative for headache, weakness, numbness, tingling, and seizure. 18:55 Constitutional: Positive for chills, malaise. 18:55 Skin: Positive for abscess, cellulitis, of the left rincon. Exam: 18:55 Constitutional: This is a well developed, well nourished patient who is awake, alert, kb and in no acute distress. Head/Face: Normocephalic, atraumatic. Chest/axilla: Normal chest wall appearance and motion. Nontender with no deformity. No lesions are appreciated. Cardiovascular: Regular rate and rhythm with a normal S1 and S2. No gallops, murmurs, or rubs. Normal PMI, no JVD. No pulse deficits. Respiratory: Lungs have equal breath sounds bilaterally, clear to auscultation and percussion. No rales, rhonchi or wheezes noted. No increased work of breathing, no retractions or nasal flaring. Abdomen/GI: Soft, non-tender, with normal bowel sounds. No distension or tympany. No guarding or rebound. No evidence of tenderness throughout. MS/ Extremity: Pulses equal, no cyanosis. Neurovascular intact. Full, normal range of motion. Neuro: Awake and alert, GCS 15, oriented to person, place, time, and situation. Cranial nerves II-XII grossly intact. Motor strength 5/5 in all extremities. Sensory grossly intact. Cerebellar exam normal. Normal gait. 18:55 Skin: abscess, that is small, of the lateral aspect of left calf, with drainage, with surrounding cellulitis, cellulitis, that is moderate, on the left rincon. Vital Signs: 16:32 BP 119 / 77; Pulse 105; Resp 19 S; Temp 97.8(TE); Pulse Ox 94% on R/A; Weight 132.9 kg ca1 (R); Height 6 ft. 0 in. (182.88 cm) (R); Pain 0/10; 18:20 BP 111 / 87; Pulse 106; Resp 17; Pulse Ox 95% ; bp 19:10 BP 99 / 62; Pulse 75; Resp 19; Temp 98; Pulse Ox 98% ; rr5 20:20 BP 92 / 70; Pulse 80; Resp 21; Pulse Ox 98% ; rr5 21:21 BP 109 / 74; Pulse 86; Resp 19; Temp 98; Pulse Ox 97% ; rr5 22:10 BP 105 / 70; Pulse 80; Resp 19; Pulse Ox 99% ; rr5 16:32 Body Mass Index 39.74 (132.90 kg, 182.88 cm) ca1 MDM: 17:21 Patient medically screened. kb 18:06 Data reviewed: vital signs, nurses notes. Data interpreted: Pulse oximetry: on room air kb is 94 %. Interpretation: acceptable. 18:55 Counseling: I had a detailed discussion with the patient and/or guardian regarding: the kb historical points, exam findings, and any diagnostic results supporting the discharge/admit diagnosis, lab results, radiology results, the need for further work-up and treatment in the hospital. Physician consultation: Nghia MOTA was contacted at 18:55, regarding admission, to the telemetry unit. patient's condition, and will see patient in ED, shortly. 12/21 17:29 Order name: Basic Metabolic Panel; Complete Time: 19:14 kb 12/21 17:29 Order name: CBC with Diff; Complete Time: 18:46 kb 12/21 17:29 Order name: Hepatic Function; Complete Time: 19:14 kb 12/21 17:29 Order name: Lipase; Complete Time: 19:14 kb 12/21 17:29 Order name: TSH; Complete Time: 19:14 kb 12/21 18:40 Order name: CBC Smear Scan; Complete Time: 18:46 EDMS 12/21 18:48 Order name: T4 Free; Complete Time: 19:14 EDMS 12/21 18:49 Order name: Blood Culture Adult (2) kb 12/21 18:49 Order name: Lactate; Complete Time: 20:32 kb 12/21 18:49 Order name: Procalcitonin; Complete Time: 21:13 kb 12/21 19:57 Order name: COVID-19 rr5 12/21 20:07 Order name: CORONAVIRUS EDMS 12/21 21:01 Order name: SARS-COV-2 RT PCR; Complete Time: 21:13 EDMS 12/21 17:29 Order name: IV Saline Lock; Complete Time: 18:06 kb 12/21 17:29 Order name: Labs collected and sent; Complete Time: 18:06 kb Administered Medications: 17:45 Drug: Benadryl 12.5 mg Route: IVP; Site: left antecubital; bp 18:54 Follow up: Response: No adverse reaction bp 18:00 Drug: Pepcid 20 mg Route: IVP; Site: left antecubital; bp 18:54 Follow up: Response: No adverse reaction bp 19:46 Drug: NS 0.9% 1000 ml Route: IV; Rate: 1000 ml; Site: left antecubital; rr5 21:30 Follow up: Response: No adverse reaction; IV Status: Completed infusion; IV Intake: rr5 1000ml 19:47 Dru grams of (Cefepime 1 grams, NS 0.9% 100 ml) Route: IVPB; Rate: 200 ml/hr; rr5 Infused Over: 30 mins; Site: left antecubital; 20:18 Follow up: Response: No adverse reaction; IV Status: Completed infusion; IV Intake: rr5 100ml 20:18 Dru grams of (vancoMYCIN 1 grams, NS 0.9% 250 ml) Route: IVPB; Infused Over: 2 hrs; rr5 Site: left antecubital; 22:31 Follow up: Response: No adverse reaction; IV Status: Infusion continued upon admission; rr5 IV Intake: 210ml 21:00 Drug: NS 0.9% 1000 ml Route: IV; Rate: 1 bolus; Site: left antecubital; rr5 22:32 Follow up: Response: No adverse reaction; IV Status: Infusion continued upon admission; rr5 IV Intake: 400ml Disposition: 12/22 11:59 Co-signature as Attending Physician, Stepan Hancock MD I agree with the assessment and geovani plan of care. Disposition: 12/22/19 19:00 Hospitalization ordered by Humza Carrasco for Observation. Preliminary diagnosis are Cellulitis of left lower limb, Elevated white blood cell count, Cutaneous abscess of left lower limb. - Bed requested for Telemetry/MedSurg (observation). - Status is Observation. rr5 - Condition is Stable. - Problem is new. - Symptoms are unchanged. Signatures: Dispatcher [employer] EDMonica Hayden, DRUM WORKER-C DRUM WORKER-Stepan Spencer MD MD cha Williams, Irene, Nghia Mayer RN, FNP-C DRUM WORKER-[facility] Hospital[facility]elle Beyer RN RN tl1 [place] Nguyen, Dewayne Hodges RN, RN RN rr5 Corrections: (The following items were deleted from the chart) 12/21 19:00 19:00 Hospitalization Ordered by Humza Carrasco DO for Observation. Preliminary kb diagnosis is Cellulitis of left lower limb. Bed requested for Telemetry/MedSurg (observation). Status is Observation. Condition is Stable. Problem is new. Symptoms are unchanged. kb 21:14 19:00 12/22/2019 19:00 Hospitalization Ordered by Humza Carrasco DO for Observation. tl1 Preliminary diagnosis is Cellulitis of left lower limb; Elevated white blood cell count; Cutaneous abscess of left lower limb. Bed requested for Telemetry/MedSurg (observation). Status is Observation. Condition is Stable. Problem is new. Symptoms are unchanged. kb 22:32 21:14 12/22/2019 19:00 Hospitalization Ordered by Humza Carrasco DO for Observation. rr5 Preliminary diagnosis is Cellulitis of left lower limb; Elevated white blood cell count; Cutaneous abscess of left lower limb. Bed requested for Telemetry/MedSurg (observation). Status is Observation. Condition is Stable. Problem is new. Symptoms are unchanged. tl1
--- NOTE | 2019-12-22 19:01 | ER ---
Nurse's Notes [facility] Name: Shay Bearden Age: 74 yrs Sex: Male : 1945 Arrival Date: 12/22/2019 Time: 15:23 Bed 16 Private MD: Hugo Alexander T Diagnosis: Cellulitis of left lower limb;Elevated white blood cell count;Cutaneous abscess of left lower limb Presentation: 12/21 16:21 Chief complaint: Patient states: has hx of eczema and cellulitis, was prescribed new iw medication by his doctor (doxycycline, levothyroxine, rifampin) took new meds today at 11:30, started having itching all over and diarrhea and also had cold chills and shakes. no difficulty breathing. Coronavirus screen:. Ebola Screen: Patient negative for fever greater than or equal to 101.5 degrees Fahrenheit, and additional compatible Ebola Virus Disease symptoms Patient denies exposure to infectious person. Patient denies travel to an Ebola-affected area in the 21 days before illness onset. No symptoms or risks identified at this time. Anaphylaxis evaluation, no signs or symptoms of anaphylaxis were noted. Initial Sepsis Screen: Does the patient meet any 2 criteria? No. Patient's initial sepsis screen is negative. Does the patient have a suspected source of infection? No. Patient's initial sepsis screen is negative. Risk Assessment: Do you want to hurt yourself or someone else? Patient reports no desire to harm self or others. Onset of symptoms was December 22, 2019. 16:21 Method Of Arrival: Wheelchair iw 16:21 Acuity: DIDI 3 iw 16:30 Onset: The symptoms/episode began/occurred acutely, this morning. bp Triage Assessment: 17:30 General: Appears distressed, uncomfortable, obese, Behavior is cooperative, appropriate bp for age, agitated, anxious. Pain: Denies pain. EENT: No deficits noted. Neuro: Level of Consciousness is awake, alert, obeys commands, Oriented to person, place, time, situation, Appropriate for age. Cardiovascular: Rhythm is sinus tachycardia. Respiratory: Airway is patent Respiratory effort is even, unlabored, Respiratory pattern is regular, symmetrical. GI: No signs and/or symptoms were reported involving the gastrointestinal system. : No signs and/or symptoms were reported regarding the genitourinary system. Derm: Rash noted that is red, urticaria. Musculoskeletal: No deficits noted. Historical: - Allergies: 16:25 Sulfa (Sulfonamide Antibiotics); iw - PMHx: 16:25 CVA; iw - Immunization history:: Adult Immunizations up to date. - Social history:: Smoking status: Patient denies any tobacco usage or history of. Screenin:30 Abuse screen: Denies threats or abuse. Denies injuries from another. Nutritional bp screening: No deficits noted. Tuberculosis screening: No symptoms or risk factors identified. Fall Risk None identified. Assessment: 17:30 General: SEE TRIAGE NOTE. bp 19:00 General: Appears in no apparent distress. comfortable, Behavior is calm, cooperative, rr5 appropriate for age. 19:00 Pain: Denies pain. Neuro: Level of Consciousness is awake, alert, obeys commands, rr5 Oriented to person, place, time, situation. Cardiovascular: Capillary refill < 3 seconds Patient's skin is warm and dry. Respiratory: Airway is patent Respiratory effort is even, unlabored, Respiratory pattern is regular, symmetrical, GI: Abdomen is round umbilical hernia noted Reports diarrhea, nausea. : No signs and/or symptoms were reported regarding the genitourinary system. EENT: No signs and/or symptoms were reported regarding the EENT system. Derm: Skin has blisters on left lower leg Skin temperature is warm cellulitis left lower leg warm to touch. Musculoskeletal: Capillary refill < 3 seconds. 19:40 Reassessment: Patient appears in no apparent distress at this time. Patient is alert, rr5 oriented x 3, equal unlabored respirations, skin warm/dry/pink. for admission hospitalist at bedside. 20:15 Reassessment: Patient appears in no apparent distress at this time. Patient and/or rr5 family updated on plan of care and expected duration. Pain level reassessed. 21:00 Reassessment: Patient appears in no apparent distress at this time. Patient is alert, rr5 oriented x 3, equal unlabored respirations, skin warm/dry/pink. no complaints made, awaiting for covid result. 22:20 Reassessment: Patient appears in no apparent distress at this time. Patient is alert, rr5 oriented x 3, equal unlabored respirations, skin warm/dry/pink. transfer to room 221 wake alert, vital signs hemodynamically stable. Vital Signs: 16:32 BP 119 / 77; Pulse 105; Resp 19 S; Temp 97.8(TE); Pulse Ox 94% on R/A; Weight 132.9 kg ca1 (R); Height 6 ft. 0 in. (182.88 cm) (R); Pain 0/10; 18:20 BP 111 / 87; Pulse 106; Resp 17; Pulse Ox 95% ; bp 19:10 BP 99 / 62; Pulse 75; Resp 19; Temp 98; Pulse Ox 98% ; rr5 20:20 BP 92 / 70; Pulse 80; Resp 21; Pulse Ox 98% ; rr5 21:21 BP 109 / 74; Pulse 86; Resp 19; Temp 98; Pulse Ox 97% ; rr5 22:10 BP 105 / 70; Pulse 80; Resp 19; Pulse Ox 99% ; rr5 16:32 Body Mass Index 39.74 (132.90 kg, 182.88 cm) ca1 ED Course: 15:23 Patient arrived in ED. mr 15:23 Hugo Alexander MD is Private Physician. mr 15:25 Monica Bardales FNP-C is PHCP. kb 15:25 Stepan Hancock MD is Attending Physician. kb 16:23 Triage completed. iw 16:23 Arm band placed on. iw 17:21 Monica Bardales FNP-C is PHCP. kb 17:21 Stepan Hancock MD is Attending Physician. kb 17:30 Patient has correct armband on for positive identification. Bed in low position. Call bp light in reach. Side rails up X2. 17:41 Cleveland Nguyen, DREW is Primary Nurse. bp 18:00 Inserted saline lock: 22 gauge in left antecubital area, using aseptic technique. Blood bp collected. 19:00 Humza Carrasco DO is Hospitalizing Provider. kb 19:40 Inserted saline lock: 20 gauge in left hand, using aseptic technique. Blood collected. rr5 19:40 First set of blood cultures drawn by me. rr5 20:00 Second set of blood cultures drawn by me. rr5 20:20 covid. rr5 22:30 No provider procedures requiring assistance completed. Patient admitted, IV remains in rr5 place. intact, No redness/swelling at site. Administered Medications: 17:45 Drug: Benadryl 12.5 mg Route: IVP; Site: left antecubital; bp 18:54 Follow up: Response: No adverse reaction bp 18:00 Drug: Pepcid 20 mg Route: IVP; Site: left antecubital; bp 18:54 Follow up: Response: No adverse reaction bp 19:46 Drug: NS 0.9% 1000 ml Route: IV; Rate: 1000 ml; Site: left antecubital; rr5 21:30 Follow up: Response: No adverse reaction; IV Status: Completed infusion; IV Intake: rr5 1000ml 19:47 Dru grams of (Cefepime 1 grams, NS 0.9% 100 ml) Route: IVPB; Rate: 200 ml/hr; rr5 Infused Over: 30 mins; Site: left antecubital; 20:18 Follow up: Response: No adverse reaction; IV Status: Completed infusion; IV Intake: rr5 100ml 20:18 Dru grams of (vancoMYCIN 1 grams, NS 0.9% 250 ml) Route: IVPB; Infused Over: 2 hrs; rr5 Site: left antecubital; 22:31 Follow up: Response: No adverse reaction; IV Status: Infusion continued upon admission; rr5 IV Intake: 210ml 21:00 Drug: NS 0.9% 1000 ml Route: IV; Rate: 1 bolus; Site: left antecubital; rr5 22:32 Follow up: Response: No adverse reaction; IV Status: Infusion continued upon admission; rr5 IV Intake: 400ml Intake: 20:18 IV: 100ml; Total: 100ml. rr5 21:30 IV: 1000ml; Total: 1100ml. rr5 22:31 IV: 210ml; Total: 1310ml. rr5 22:32 IV: 400ml; Total: 1710ml. rr5 Outcome: 19:00 Decision to Hospitalize by Provider. kb 22:15 Admitted to Med/surg accompanied by tech, via wheelchair, room 221, with chart, Report rr5 called to jerri 22:15 Condition: stable rr5 22:15 Instructed on the need for admit. 22:32 Patient left the ED. rr5 Signatures: Monica Bardales, NAKUL PORTERP-Olivia Dubois mr Kusum Hu, RN DREW iw Cleveland Nguyen RN RN bp Roque, Raymond, RN RN rr5 Natasha Jhaveri RN RN ca1
[2019-12-22] MEDS ORDERED: NA CHLORIDE 0.9% 250 ML ONE (19:28)
[2019-12-22] MEDS ORDERED: VANCOMYCIN 1 GM/VIAL ONE (19:28)
[2019-12-22] MEDS ORDERED: CEFEPIME 1 GM/100 ML BAG IV ONE (19:28)
[2019-12-22] MEDS ORDERED: NA CHLORIDE 0.9% 1,000 ML ONE ×2 (19:28→21:50)
--- NOTE | 2019-12-22 20:21 | P.HP ---
Certification for Inpatient Patient admitted to: Inpatient With expected LOS: >2 Midnights Patient will require the following post-hospital care: None Practitioner: I am a practitioner with admitting privileges, knowledge of patient current condition, hospital course, and medical plan of care. Services: Services provided to patient in accordance with Admission requirements found in Title 42 Section 412.3 of the Code of Federal Regulations <HermelindajeffNghia - Last Filed: 12/22/19 20:15> Patient History Date of Service: 12/22/19 Primary Care Provider: Dr. Alexander Reason for admission: Cellulitis left lower extremity History of Present Illness: 74-year-old male with history of hypothyroidism and CVA approximately 5 years ago on chronic anticoagulation therapy with warfarin presents emergency department for rash/cellulitis of left lower extremity. Patient reports that he has had redness of left lower extremity with abscess for the last approximately 2 weeks, patient reportedly and has been taking rifampin that was prescribed by his PCP for the cellulitis left lower extremity. Patient was evaluated in the emergency department found to have an elevated white blood cell count at 18,000, small abscess to the left lateral calf area draining small amount of serosanguineous/purulent drainage. Patient reports his history of eczema and frequently has small abscesses pop up. During his evaluation in the emergency department also noted that his creatinine was elevated at 2.0, GFR 33, BUN 31. Patient's baseline GFR at this time appears to be around 45. ED provider wishes to admit patient for further evaluation and management. When I saw the patient in the emergency department is awake, alert, oriented x3. Patient reports mild pain to the left lower extremity. Pro calcitonin and lactate pending at this time, blood cultures obtained. Patient does not appear septic at this time. Patient be admitted for further evaluation and management. - Past Medical/Surgical History Diabetic: No -: CEREBRAL ATHEROSLEROSIS -: HX OF CVA -: ALCOHOL ABUSE -: PEG TUBE PLACEMENT Psychosocial/ Personal History: Patient lives at home with his and is retired. - Family History Father -: GI disease Notes: STOMACH ULCERS Mother Notes: ALZHEIMERS - Social History Smoking Status: Never smoker Alcohol use: Yes CD- Drugs: No Caffeine use: Yes Place of Residence: Home <Nghia Kerr - Last Filed: 12/22/19 20:15> Date of Service: 12/23/19 Home medications list reviewed: Yes <Humza Carrasco - Last Filed: 12/23/19 12:54> Allergies Sulfa (Sulfonamide Antibiotics) Allergy (Verified 12/23/19 04:52) Itching/Hives/Rash Home Medications: Acetaminophen 500 mg PO Q6HP PRN 03/28/19 Rifampin [Rifadin] 300 mg PO BID 03/28/19 Warfarin Sodium [Coumadin*] 5 mg PO DAILY 03/28/19 Doxycycline Hyclate 100 mg PO BID 12/23/19 Review of Systems 10-point ROS is otherwise unremarkable Integumentary: Other (Cellulitis left lower extremity, abscess.), As per HPI <Nghia Kerr - Last Filed: 12/22/19 20:15> Physical Examination - Physical Exam General: Alert, In no apparent distress, Oriented x3 HEENT: Atraumatic, Normocephalic, PERRLA, Mucous membr. moist/pink Neck: Supple Respiratory: Clear to auscultation bilaterally, Normal air movement Cardiovascular: Normal pulses, Regular rate/rhythm, Normal S1 S2 Capillary refill: <2 Seconds Gastrointestinal: Normal bowel sounds, Soft and benign Musculoskeletal: Erythema, Tenderness, Warmth (Left lower extremity) Integumentary: Skin lesion (Small abscess left lateral aspect of the calf), Tenderness/swelling, Erythema, Warmth (Left lower extremity) Neurological: Normal speech, Normal strength at 5/5 x4 extr, Normal tone, Sensation intact - Studies Laboratory Data (last 24 hrs) 12/22/19 18:00: WBC 18.2 H, Hgb 14.3, Hct 42.8, Plt Count 348 12/22/19 18:00: Sodium 141, Potassium 3.9, BUN 31 H, Creatinine 2.00 H, Glucose 152 H, Total Bilirubin 1.5 H, AST 16, ALT 19, Alkaline Phosphatase 74, Lipase 139 <Nghia Kerr - Last Filed: 12/22/19 20:15> - Studies Laboratory Data (last 24 hrs) 12/22/19 18:00: WBC 18.2 H, Hgb 14.3, Hct 42.8, Plt Count 348 12/22/19 18:00: Sodium 141, Potassium 3.9, BUN 31 H, Creatinine 2.00 H, Glucose 152 H, Total Bilirubin 1.5 H, AST 16, ALT 19, Alkaline Phosphatase 74, Lipase 139 <Humza Carrasco - Last Filed: 12/23/19 12:54> Assessment and Plan - Plan Assessment Cellulitis left lower extremity complicated with abscess to the left lateral calf area PATRICIA on CKD 3 Hypothyroidism History of CVA on chronic anticoagulation therapy with Coumadin Plan Cellulitis left lower extremity complicated with abscess to the left lateral calf area: Antibiotic therapy with cefepime/vancomycin. Surgical consult in place due to presence of abscess. NPO after midnight. Will obtain ultrasound left lower extremity to rule out DVT and evaluate abscess of the left lower extremity. DVT prophylaxis with patient is Coumadin 5 mg p.o. daily. PATRICIA on CKD 3: Continue with gentle hydration, obtain renal ultrasound, urine electrolytes. Nephrology consult in place as patient says he has not seen Nephrology in the past. Hypothyroidism: Patient just started taking levothyroxine 100 mcg. Continue medication. History of CVA on chronic anticoagulation therapy with Coumadin: Continue Coumadin at this time unless surgical intervention is necessary. Will obtain coags with morning labs. Discharge Plan: Home Plan to discharge in: 48 Hours - Advance Directives Does patient have a Living Will: No Does patient have a Durable POA for Healthcare: Yes - Code Status/Comfort Care Code Status Assessed: Yes (Full Code) Critical Care: No Time Spent Managing Pts Care (In Minutes): 55 <Nghia Kerr - Last Filed: 12/22/19 20:15> - Plan Case discussed in detail with nurse practitioner. Agree with evaluation and plan of care. Please see progress note for details. Surgery to evaluate patient today. <Humza Carrasco - Last Filed: 12/23/19 12:54>
[2019-12-22] MEDS ORDERED: VANCOMYCIN/NS 1 gm 1 GM/250 ML BAG IVPB SCH (22:39)
[2019-12-22] MEDS ORDERED: HYDROCODONE/APAP 5/325 MG TAB PO PRN (22:39)
[2019-12-22] MEDS ORDERED: ACETAMINOPHEN 500 MG TAB PO PRN (22:39)
[2019-12-22] MEDS ORDERED: NA CHLORIDE 0.9% 1,000 ML IV SCH (22:39)
[2019-12-22] MEDS ORDERED: CEFEPIME 1 GM/VIAL IV SCH (22:39)
[2019-12-22] MEDS ORDERED: ONDANSETRON 4 MG/2 ML VIAL IV PRN (22:39)
[2019-12-22] MEDS: CEFEPIME/SWI 1gm 10 ML IV SCH (23:00)
[2019-12-23 00:32] VITALS: BMI 39.7
--- NOTE | 2019-12-23 00:36 | P.INFCA ---
Sepsis Focused Assessment - Focused Assessment Complete? Sepsis Focused Assessment Completed?: Yes - Sepsis Screen Result Severe Sepsis: Negative Septic Shock: Negative - Evaluation Current stage of sepsis: Ruled out Reason for ruling out sepsis: HR and BP - Vital Signs Reviewed: Yes Temperature: 98.7 F Heart rate: 81 Blood Pressure: 115/58 Respiratory Rate: 20 O2 Sat by Pulse Oximetry: 98 - Examination Date exam was performed: 12/23/19 Time exam was performed: 00:35 Heart: Regular rate/rhythm Lungs: Clear bilaterally Peripheral pulses: 3+ Normal Peripheral pulse location: Radial Capillary refill: <2 Seconds Skin examination: Normal turgor
[2019-12-23 04:01] LABS: Absolute Lymphocytes (CBC) 1.1 K/uL (0.7-4.9); Basophils % 0.5 % (0-1.3); Hematocrit 36.1 % (39.6-49.0); MPV 7.5 fL (7.6-11.3); RBC Red Blood Cell Count 4.23 M/uL (4.33-5.43)
[2019-12-23 04:19] LABS: Protime INR 1.87
[2019-12-23 04:26] LABS: Magnesium 2.1 mg/dL (1.8-2.4); Potassium 4.7 mmol/L (3.5-5.1); Uric Acid 7.5 mg/dL (3.5-7.2)
[2019-12-23] MEDS ORDERED: PNEUMOCOCCAL VACCINE 0.5 ML IMVAC ONE (06:00)
[2019-12-23] MEDS ORDERED: INFLUENZA VACCINE (for 3y+) 0.5 ML DOSE IMVAC ONE (06:00)
[2019-12-23] MEDS: LEVOTHYROXINE SOD 0.1 MG TAB PO SCH (06:01)
[2019-12-23 06:47] LABS: Urine Appearance CLOUDY; Urine Blood NEGATIVE (NEG); Urine Color ORANGE; Urine Glucose NEGATIVE (NEG); Urine Protein 1+ (NEG); Urine Specific Gravity >=1.030 (1.005-1.030); Urine Urobilinogen 0.2 mg/dL (0.2-1.0)
[2019-12-23 07:05] LABS: Urine Bilirubin 1+ (NEG); Urine Microscopic Reflex ORDER UMIC
[2019-12-23 07:15] LABS: Calcium Oxalate Crystals- Ur PRESENT (NONE SEEN); Urine Amorphous Sediment 1+ /HPF (NONE SEEN); Urine Bacteria 20-50 /HPF (NONE SEEN); Urine Coarse Granular Casts 0-5 /LPF (NONE SEEN); Urine Culture Reflex Order REFLEXED; Urine Mucus HEAVY /HPF (NONE SEEN); Urine RBC <5 /HPF (NONE SEEN)
[2019-12-23] MEDS: CEFEPIME/SWI 1gm 10 ML IV SCH ×2 (08:01→20:26)
--- NOTE | 2019-12-23 08:49 | RAD REPORT ---
EXAM DESCRIPTION: US - Extremity Venous Uni Ltd - 12/23/2019 8:41 am CLINICAL HISTORY: R/O DVT, Evaluate abscess to LLE Leg swelling and edema. COMPARISON: Extrem Venous W Compress Andrzej dated 03/28/2019 FINDINGS: Left lower extremity venous system was interrogated with Doppler technique. Normal flow, c ompressibility and augmentation was noted. There is no DVT present. Small complex fluid collection is seen lateral left calf. IMPRESSION: No evidence of left lower extremity deep venous thrombosis.
[2019-12-23] MEDS ORDERED: VANCOMYCIN 2 GM in NA CHLORIDE 0.9% 500 ML IVPB SCH ×5 (10:00→12:00)
--- NOTE | 2019-12-23 10:02 | RAD REPORT ---
EXAM DESCRIPTION: US - Renal Ultrasound-Complete - 12/23/2019 8:41 am CLINICAL HISTORY: PATRICIA Flank pain COMPARISON: No comparisons FINDINGS: Both kidneys are normal in size, shape and echotexture. The right kidney measures 10.5 x 5.5 x 5.1 cm. No hydronephrosis, focal mass or perinephric fluid. The left kidney measures 10.8 x 5.6 x 3.5 cm. No hydronephrosis, focal mass or perinephric fluid. The urinary bladder is incompletely distended without gross abnormality seen. Several gallstones are present. IMPRESSION: Unremarkable renal sonogram. Cholelithiasis.
--- NOTE | 2019-12-23 10:31 | CON ---
Date of Consultation: 12/23/2019 Brief History Of Present Illness: Patient is a 74-year-old male with past medical history of hypothyroidism and CVA approximately 5 years ago, on chronic warfarin anticoagulation who presents to the emergency department with worsening rash and cellulitis of his bilateral lower extremities, l eft greater than right. He reports that he has had redness of this extremity for approximately 2 wee ks prior to his admission and had an abscess on the posterior aspect near his calf, which had drained out spontaneously. He had been placed on rifampin by his primary care physician for the cellulitis, but was concerned about worsening drainage and tenderness and redness to the lower extremity as such I was consulted to evaluate the patient for possible surgical debridement. Past Medical History: Significant for CVA, alcohol abuse, PEG tube. Past Surgical History: PEG tube placement. Home Medications: Include rifampin, Coumadin, Omnicef. Allergies: NO KNOWN DRUG ALLERGIES. Social History: Smoking; he denies smoking. Drinks alcohol recreationally. Denies recreational isabella g use. Family History: Consistent with GI disease in his father who had ulcers. His mother had Alzheimer's . Review of Systems: 10-point review of systems other than HPI, denies. Physical Examination: Vital Signs: At the time examination his BMI was 39.7. His vital signs were blood pressure 117/59, pulse is 83, respiratory rate 18, temperature 98.5. General: He is awake, alert, and oriented. Psychiatric appropriate. Conversive. HEENT: He is normocephalic. Sclerae icteric. Mucous is moist. Oropharynx clear. Neck: Supple. No JVD. Chest: Normal to expansion and excursion. Cardiovascular: Regular rate and rhythm. Pulmonary: Clear to auscultation bilaterally. Extremities: Focused examination of bilateral lower extremities; he has cellulitis and swelling to t he left lower extremity greater than right. He has bilateral pitting edema in bilateral lower extrem ities, but left greater than right with cellulitic changes extending from the foot to approximately t he 2-3 inches below the tibial plateau. Now it is circumferential redness. There are no drainable c ollections. He does have a small wound on the lateral aspect of the calf which is approximately 2 cm inside, around. No drainable collections appreciated in the entire lower extremity. Skin: Examination was otherwise unremarkable. Laboratory Data: Reveals a white blood count 14.2, hemoglobin 12.4, hematocrit 36.1, platelet count was 244. His neutrophils are 84%. His PT was 21.8, INR 1.87, PTT is 32.9. His sodium 142, potassiu m 4.7, chloride 109, carbon dioxide 26, BUN 37, creatinine 1.9, glucose is 119. Lactic acid was 3.4 on admission, now 1.3. His calcium was 7.6. His total bilirubin was 1.5, direct bilirubin 0.6, AST 16, ALT 19, alkaline phosphatase 73. His creatine kinase is 338. His lipase is 139. His procalcito nicolas 0.39. He had 20/50 bacteria in his urinalysis, as well as squamous cells. He did not have any i maging. Assessment And Plan: This is a 74-year-old male with cellulitis of the left lower extremity with sma ll open wound. 1.IV fluid hydration. 2.Antibiotic coverage. 3.Serial exams. 4.Dakin solution to the wound and wrapped with gentle compression, elevate and cool packs to the low er extremity. 5.Continue medical management. There is no surgical indication at this point; however, follow along with you. Thank you for this interesting consult. JEN/ROMY Voice ID: [id number] Report ID: [id number]
[2019-12-23] MEDS: SODIUM HYPOCHLORITE 0.25% 473 ML TOP SCH (12:39)
--- NOTE | 2019-12-23 13:17 | P.PN ---
Subjective Date of Service: 12/23/19 Primary Care Provider: Dr. Alexander Chief Complaint: Cellulitis left lower extremity Subjective: Other (Patient reports slight improvement. No fever noted. Erythema and pain to the left lower extremity noted.) Physical Examination - Vital Signs Temperature: 97.2 F Blood Pressure: 132/60 Pulse: 69 Respirations: 17 Pulse Ox (%): 98 - Physical Exam General: Alert, In no apparent distress, Oriented x3, Cachectic HEENT: Atraumatic Neck: Supple Respiratory: Clear to auscultation bilaterally, Normal air movement Cardiovascular: Normal pulses, Regular rate/rhythm Gastrointestinal: Normal bowel sounds, Soft and benign, Non-distended, No tenderness, No masses, No rebound, No guarding Integumentary: Other (Significant edema, erythema to the left lower extremity [id number]. This extends to the calf and ankle region. There is an area of fluctuance to the lateral calf region. No significant exiting noted. Changes are significant in comparison to his right lower extremity.) Neurological: Normal speech, Normal strength at 5/5 x4 extr, Normal tone, Normal affect - Studies Laboratory Data (last 24 hrs) 12/22/19 18:00: WBC 18.2 H, Hgb 14.3, Hct 42.8, Plt Count 348 12/22/19 18:00: Sodium 141, Potassium 3.9, BUN 31 H, Creatinine 2.00 H, Glucose 152 H, Total Bilirubin 1.5 H, AST 16, ALT 19, Alkaline Phosphatase 74, Lipase 139 Medications List Reviewed: Yes Assessment & Plan Discharge Plan: Home Plan to discharge in: 72 Hours Physician Review Additional Text: Assessment Cellulitis left lower extremity complicated with abscess to the left lateral calf area off failed outpatient therapy PATRICIA on CKD 3 Hypothyroidism History of CVA on chronic anticoagulation therapy with Coumadin Plan Cellulitis left lower extremity complicated with abscess to the left lateral calf area, failed outpatient therapy: Patient previously on doxycycline and rifampin. This has been discontinued. Venous Doppler shows no DVT. Continue IV antibiotic therapy. Antibiotic therapy with cefepime/vancomycin. Case discussed at length with surgery. No surgical intervention needed at this time. Continue Dakin's and wound care. Elevate when sitting or lying in. May apply ice pack to the area. Continue IV fluids. Nephrology consulted to address possible acute on chronic renal disease. Renal ultrasound pending. Anticipate improvement over the next 72 hr. Will continue monitor closely. PATRICIA on CKD 3: Continue IV fluids. Obtain renal ultrasound. Await recommendations by Nephrology. Hypothyroidism: Patient just started taking levothyroxine 100 mcg. Continue medication. History of CVA on chronic anticoagulation therapy with Coumadin: Continue Coumadin at this time. Monitor INR. Maintain INR 2-3. Time Spent Managing Pts Care (In Minutes): 55
[2019-12-23] MEDS ORDERED: TRAMADOL HCL 50 MG TAB PO PRN (13:18)
[2019-12-23] MEDS: NACHLORIDE 0.45% 1,000 ML IV SCH (13:53)
--- NOTE | 2019-12-23 14:49 | CON ---
Date of Consultation: 12/23/2019 Reason For Consultation: Acute renal failure. History Of Present Illness: Mr. Bearden is a 74-year-old male with past medical history significant fo r history of morbid obesity, chronic lower extremity edema, hypothyroidism, and CVA, presented to [facility] because of lower extremity infection with abscess and cellulitis. The patient has b een treated for lower extremity cellulitis and Nephrology is being consulted for acute renal insuffic iency. Past Medical History: Significant for history of CVA, alcohol abuse, PET tube placement. Family History: Noncontributory. Social History: No history of smoking, alcohol use reported. He lives at home. Home Medications: Have been reviewed in detail. Review of Systems: Positive for pain and swelling in the left lower extremity. Denies any chest pain, shortness of med th. Denies any abdominal pain. Denies any dysuria or hematuria. All other review of systems are ne gative. Physical Examination: Vital Signs: At this time are showing temperature of 97.2, pulse rate of 69, respiratory rate of 17, and blood pressure 132/60. General Examination: He is a morbidly obese male, in no acute distress. HEENT: Shows atraumatic he ad. Lungs: Auscultation of the lungs revealed bilateral equal air entry. Heart: Auscultation of the heart revealed regular rate and rhythm. Extremities: Showed left lower extremity with cellulitis and noted to be in dressing. Laboratory Data: Has been reviewed and are stable. Creatinine is improving to 1.94 from 2. Other e lectrolytes are stable. CBC showing WBC count of 14,000, hemoglobin of 12.4, hematocrit of 36.1, and platelet count of 244. Urinalysis showing leukocyte esterase 1+, squamous epithelial cells 10-20, a nd bacteria 20-50. Current Medications: Have been reviewed in detail. Renal ultrasound has also been reviewed. The pa tient is on normal saline at 75 cc an hour, vancomycin, and Coumadin and levothyroxine. Impression: 1.Acute renal insufficiency secondary to possibly from acute tubular necrosis, currently with improv ing renal function. 2.Left lower extremity cellulitis. The patient is getting antibiotics and wound care at this time. Continue antibiotics and monitor vancomycin trough closely. 3.Hypothyroidism. 4.History of cerebrovascular accident with chronic anticoagulation and Coumadin. Plan: The patient's renal function is improving. Renal ultrasound is also stable. Likely, this is PATRICIA. He is not on any other medications that can impact his renal function. Monitor vancomycin trou gh closely and follow up on renal function. Avoid nephrotoxins and hypotension. VV/MODL Voice ID: [id number] Report ID: [id number]
[2019-12-23] MEDS ORDERED: WARFARIN SODIUM 5 MG TAB PO SCH (17:00)
[2019-12-24] MEDS: NACHLORIDE 0.45% 1,000 ML IV SCH (04:04)
[2019-12-24] MEDS: LEVOTHYROXINE SOD 0.1 MG TAB PO SCH (05:43)
[2019-12-24 05:57] LABS: Absolute Lymphocytes (CBC) 0.9 K/uL (0.7-4.9); Basophils % 0.2 % (0-1.3); Hematocrit 32.8 % (39.6-49.0); Lymphocytes % 11.9 % (15.3-44.8); MPV 7.5 fL (7.6-11.3); RBC Red Blood Cell Count 3.79 M/uL (4.33-5.43)
[2019-12-24 05:59] LABS: Magnesium 2.1 mg/dL (1.8-2.4); Potassium 4.3 mmol/L (3.5-5.1)
--- NOTE | 2019-12-24 07:37 | RAD REPORT ---
EXAM DESCRIPTION: Alanis Single View12/24/2019 6:57 am CLINICAL HISTORY: Shortness breath COMPARISON: March 2019 FINDINGS: The lungs appear clear of acute infiltrate. The heart is mildly enlarged IMPRESSION: No acute abnormalities displayed
[2019-12-24] MEDS: CEFEPIME/SWI 1gm 10 ML IV SCH (08:21)
--- NOTE | 2019-12-24 08:38 | P.PN ---
Subjective Date of Service: 12/24/19 Primary Care Provider: Dr. Alexander Chief Complaint: Cellulitis left lower extremity Subjective: Improving, Other (Patient feeling a lot better) Physical Examination - Vital Signs Temperature: 98.0 F Blood Pressure: 130/60 Pulse: 73 Respirations: 18 Pulse Ox (%): 92 - Physical Exam General: Alert, In no apparent distress, Oriented x3, Cooperative HEENT: Atraumatic Neck: Supple Respiratory: Clear to auscultation bilaterally, Normal air movement Cardiovascular: Normal pulses, Regular rate/rhythm Gastrointestinal: Normal bowel sounds, Soft and benign, Non-distended, No tenderness, No masses, No rebound, No guarding Integumentary: Other (Erythema to the lower extremity left side significantly improved. Also less swelling noted to the left lower extremity.) Neurological: Normal speech, Normal strength at 5/5 x4 extr, Normal tone, Normal affect - Studies Medications List Reviewed: Yes Assessment & Plan Discharge Plan: Home Plan to discharge in: 24 Hours Physician Review Additional Text: Assessment Cellulitis left lower extremity complicated with abscess to the left lateral ca lf area off failed outpatient therapy PATRICIA likely related to above Hypothyroidism History of CVA on chronic anticoagulation therapy with Coumadin Plan Cellulitis left lower extremity complicated with abscess to the left lateral calf area, failed outpatient therapy: Overall patient has significantly improved. Continue IV antibiotic therapy. Continue to elevate when sitting or lying. Will discuss with surgery about improvement. Patient desires to go home later today. Possible discharge as early as today but will discuss with surgery. May need an extra day of IV antibiotic therapy. Venous Doppler negative. Continue to monitor closely. Will reassess later today. PATRICIA likely related to above: Renal ultrasound unremarkable. Renal function improved with IV fluids. Doubt underlying chronic renal disease. Will discuss further with nephrology. Hypothyroidism: Continue with home medication levothyroxine 100 mcg. History of CVA on chronic anticoagulation therapy with Coumadin: Continue Coumadin at this time. Monitor INR. Maintain INR 2-3. Time Spent Managing Pts Care (In Minutes): 55
[2019-12-24 09:04] VITALS: O2SAT 95
[2019-12-24 13:28] VITALS: BP 147/68; TEMP 97
[2019-12-24] MEDS: SODIUM HYPOCHLORITE 0.25% 473 ML TOP SCH (13:32)
--- NOTE | 2019-12-24 13:45 | P.DS ---
Admission Date: 12/22/19 Discharge Date: 12/24/19 Primary Care Provider: Dr. Alexander Disposition: ROUTINE DISCHARGE Discharge Condition: GOOD Reason for Admission: Cellulitis left lower extremity Consultations: Surgery-Dr. Chow Nephrology-Dr. Guajardo Procedures: COVID: Negative Renal US: FINDINGS: Both kidneys are normal in size, shape and echotexture. The right kidney measures 10.5 x 5.5 x 5.1 cm. No hydronephrosis, focal mass or perinephric fluid. The left kidney measures 10.8 x 5.6 x 3.5 cm. No hydronephrosis, focal mass or perinephric fluid. The urinary bladder is incompletely distended without gross abnormality seen. Several gallstones are present. IMPRESSION: Unremarkable renal sonogram. Cholelithiasis. Venous doppler: COMPARISON: Extrem Venous W Compress Andrzej dated 03/28/2019 FINDINGS: Left lower extremity venous system was interrogated with Doppler technique. Normal flow, compressibility and augmentation was noted. There is no DVT present. Small complex fluid collection is seen lateral left calf. IMPRESSION: No evidence of left lower extremity deep venous thrombosis. CXR: COMPARISON: March 2019 FINDINGS: The lungs appear clear of acute infiltrate. The heart is mildly enlarged IMPRESSION: No acute abnormalities displayed Medical Problem List: Cellulitis left lower extremity complicated without abscess to the left lateral calf area, failed outpatient therapy PATRICIA likely related to above Hypothyroidism History of CVA on chronic anticoagulation therapy with Coumadin Brief History of Present Illness: 74-year-old male with history of hypothyroidism and CVA approximately 5 years ago on chronic anticoagulation therapy with warfarin presents emergency department for rash/cellulitis of left lower extremity. Patient reports that he has had redness of left lower extremity with abscess for the last approximately 2 weeks, patient reportedly and has been taking rifampin that was prescribed by his PCP for the cellulitis left lower extremity. Patient was evaluated in the emergency department found to have an elevated white blood cell count at 18,000, small abscess to the left lateral calf area draining small amount of serosanguin eous/purulent drainage. Patient reports his history of eczema and frequently has small abscesses pop up. During his evaluation in the emergency department also noted that his creatinine was elevated at 2.0, GFR 33, BUN 31. Patient's baseline GFR at this time appears to be around 45. ED provider wishes to admit patient for further evaluation and management. Hospital Course: Patient presented with cellulitis to the left lower extremity without abscess to the left lower extremity/left lateral calf area. Patient had failed outpatient therapy. Patient was admitted for further evaluation and treatment. Patient responded well to IV antibiotic therapy. Patient was seen by surgery. No surgical intervention was required. At discharge, erythema, swelling has signi ficantly improved. At discharge he will continue with current wound care. At discharge patient will continue with Augmentin 500 mg 1 pill twice daily and doxycycline 100 mg 1 pill twice daily for 7 days. Recommendation is for the patient to follow up with surgery in 1 week to follow up this hospitalization and to continue his care. Patient also had acute renal injury this was likely related to above and dehydration. Renal function improved and back to baseline. Nephrology was consulted. Renal ultrasound unremarkable. Recommend to recheck lab-BMP in 1-2 weeks to monitor his progress. Patient may follow up with nephrology if this persists. Patient with hypothyroidism. At discharge patient may continue with his current medication. Recommendation is to recheck tsh and free T4 in 4-6 weeks to monitor his progress. Further adjustment can be done by his PCP. Patient with history of CVA on chronic anti coagulation therapy-Coumadin. This has remained stable. At discharge patient will continue with current Coumadin regimen. Recommend to monitor his INR as scheduled. Will recommend to recheck INR in 5 days as the patient will be on antibiotic therapy which may interfere with his Coumadin. Recommend to maintain INR between 2 and 3. Follow up with PCP to further monitor and adjust medication. Incidental finding of gallstones noted on ultrasound. Education provided. If he has pain in the future patient may see surgery to further evaluate. Vital Signs/Physical Exam: Temp Pulse Resp BP Pulse Ox 97.0 F 65 17 147/68 H 98 12/24/19 12:00 12/24/19 12:00 12/24/19 12:00 12/24/19 12:00 12/24/19 12:00 General: Alert, In no apparent distress, Oriented x3, Cooperative HEENT: Atraumatic Neck: Supple Respiratory: Clear to auscultation bilaterally, Normal air movement Cardiovascular: Normal pulses, Regular rate/rhythm Gastrointestinal: Normal bowel sounds, Soft and benign, Non-distended, No tenderness, No masses, No rebound, No guarding Musculoskeletal: No erythema, No tenderness, No warmth Integumentary: No erythema, No warmth, No cyanosis, Other (significantly improved edema. No erythema noted. ) Neurological: Normal speech, Normal strength at 5/5 x4 extr, Normal tone, Normal affect, Abnormal affect Laboratory Data at Discharge: WBC 7.4 K/uL (4.3-10.9) D 12/24/19 05:14 Hgb 11.1 g/dL (13.6-17.9) L 12/24/19 05:14 Hct 32.8 % (39.6-49.0) L 12/24/19 05:14 Plt Count 180 K/uL (152-406) D 12/24/19 05:14 PT 21.8 SECONDS (9.5-12.5) H 12/23/19 03:32 INR 1.87 12/23/19 03:32 APTT 32.6 SECONDS (24.3-36.9) 12/23/19 03:32 Sodium 141 mmol/L (136-145) 12/24/19 05:14 Potassium 4.3 mmol/L (3.5-5.1) 12/24/19 05:14 BUN 25 mg/dL (7-18) H 12/24/19 05:14 Creatinine 1.20 mg/dL (0.55-1.3) 12/24/19 05:14 Glucose 94 mg/dL (74-106) 12/24/19 05:14 Uric Acid 7.5 mg/dL (3.5-7.2) H 12/23/19 03:32 Magnesium 2.1 mg/dL (1.8-2.4) 12/24/19 05:14 Total Bilirubin 1.5 mg/dL (0.2-1.0) H 12/22/19 18:00 AST 16 U/L (15-37) 12/22/19 18:00 ALT 19 U/L (12-78) 12/22/19 18:00 Alkaline Phosphatase 74 U/L (45-117) 12/22/19 18:00 Lipase 139 U/L (73-393) 12/22/19 18:00 Home Medications: Acetaminophen 500 mg PO Q6HP PRN 03/28/19 Warfarin Sodium [Coumadin*] 5 mg PO DAILY 03/28/19 Amox/Clavulanate [Augmentin 500-125 mg Tab] 500 mg PO BID #14 tab 12/24/19 Doxycycline Hyclate 100 mg PO BID #14 tablet 12/24/19 New Medications: Amox/Clavulanate [Augmentin 500-125 mg Tab] 500 mg PO BID #14 tab Doxycycline Hyclate 100 mg PO BID #14 tablet Patient Discharge Instructions: 1. Follow up with PCP in 1 week to follow up this hospitalization. 2. Patient presented with cellulitis to the left lower extremity without abscess to the left lower extremity/left lateral calf area. Patient had failed outpatient therapy. Patient was admitted for further evaluation and treatment. Patient responded well to IV antibiotic therapy. Tommy manning was seen by surgery. No surgical intervention was required. At discharge, erythema, swelling has significantly improved. At discharge he will continue with current wound care. At discharge patient will continue with Augmentin 500 mg 1 pill twice daily and doxycycline 100 mg 1 pill twice daily for 7 days. Recommendation is for the patient to follow up with surgery in 1 week to follow up this hospitalization and to continue his care. 3. Patient also had acute renal injury this was likely related to above and dehydration. Renal function improved and back to baseline. Nephrology was consulted. Renal ultrasound unremarkable. Recommend to recheck lab-BMP in 1-2 weeks to monitor his progress. Patient may follow up with nephrology if this persists. 4. Patient with hypothyroidism. At discharge patient may continue with his current medication. Recommendation is to recheck tsh and free T4 in 4-6 weeks to monitor his progress. Further adjustment can be done by his PCP. 5. Patient with history of CVA on chronic anti coagulation therapy-Coumadin. This has remained stable. At discharge patient will continue with current Coumadin regimen. Recommend to monitor his INR as scheduled. Will recommend to recheck INR in 5 days as the patient will be on antibiotic therapy which may interfere with his Coumadin. Recommend to maintain INR between 2 and 3. Follow up with PCP to further monitor and adjust medication. 6. Incidental finding of gallstones noted on ultrasound. Education provided. If he has pain in the future patient may see surgery to further evaluate. Diet: AHA Activity: Ad soraida Followup: Hugo Alexander MD [Primary Care Provider] - Time spent managing pt's care (in minutes): 55
--- NOTE | 2019-12-24 20:13 | P.PN ---
Date of Service: 12/24/19 Vital Signs Temp Pulse Resp BP Pulse Ox 97.0 F 65 17 147/68 H 98 12/24/19 12:00 12/24/19 12:00 12/24/19 12:00 12/24/19 12:00 12/24/19 12:00 Assessment/ Plan: Nephrology CPS stable without CP or SOB. No acute events overnight. Feeling better. Improved urine output. Vitals, medications, blood work and imaging reviewed in the chart. NAD. Obese. MMM. Neck supple. CTA. RRR. Soft Abd. No C/C. LE Edema 1+. No rash. AAO. Normal Speech. A/ PATRICIA Hypocalcemia HTN with CKD CKD III with proteinuria Cellulitis of LLE Morbid Obesity P/ Continue current POC and Medications. Continue IVF. Continue abx. Low sodium diet. AM labs. Daily weight. No NSAIDs.
== END 2019-12-24 14:52 | disposition home or self-care (01) | DRG 603 ==
LOC: ER 15:20 → ERHOLD 19:33 → 2ND 22:01
PROVIDERS: ADMIT Family Medicine; ATTEND Family Medicine
DX: L03.116 Cellulitis of left lower limb (principal); N17.9 Acute kidney failure, unspecified; R64 Cachexia; L02.416 Cutaneous abscess of left lower limb; I12.9 Hypertensive chronic kidney disease with stage 1 through stage 4 chronic kidney disease, or unspecified chronic kidney disease; N18.30 Chronic kidney disease, stage 3 unspecified; E83.51 Hypocalcemia; E03.9 Hypothyroidism, unspecified; E66.01 Morbid (severe) obesity due to excess calories; Z68.39 Body mass index [BMI] 39.0-39.9, adult; Z86.73 Personal history of transient ischemic attack (TIA), and cerebral infarction without residual deficits; Z79.01 Long term (current) use of anticoagulants; Z79.899 Other long term (current) drug therapy; Z88.1 Allergy status to other antibiotic agents; Z20.828 Contact with and (suspected) exposure to other viral communicable diseases
CPT/HCPCS: 36415; 71045; 76770; 80048; 80076; 80202; 81003; 81015; 82550; 83605; 83690; 83735; 83935; 84132; 84145; 84300; 84439; 84443; 84550; 85025; 85610; 85730; 87040; 87086; 87088; 93971; 96365; 96366; 96367; 96375; 97116; 97161; 99285; J0692; J1200; J3370; J7030; J7040; J7050; U0003

== ENCOUNTER 2020-05-02 10:59 | Emergency (ER) | payer OTHER ==
[2020-05-02] MEDS ORDERED: METHYLPREDNISOLONE 125 MG INJ ONE (14:58)
[2020-05-02] MEDS ORDERED: FUROSEMIDE 40 MG/4 ML VIAL ONE (14:59)
[2020-05-02] MEDS ORDERED: FUROSEMIDE 20 MG/ 2ML VIAL ONE (15:00)
[2020-05-02 15:02] LABS: Absolute Lymphocytes (CBC) 0.6 K/uL (0.7-4.9); Basophils % 0.8 % (0-1.3); Hematocrit 35.3 % (39.6-49.0); Lymphocytes % 6.5 % (15.3-44.8); MPV 7.2 fL (7.6-11.3); RBC Red Blood Cell Count 4.02 M/uL (4.33-5.43)
[2020-05-02 15:10] LABS: Protime INR 1.28
[2020-05-02 15:21] LABS: ALT/SGPT 18 U/L (12-78); AST/SGOT 21 U/L (15-37); Alkaline Phosphatase 59 U/L (45-117); BUN Blood Urea Nitrogen 32 mg/dL (7-18); Bicarbonate 24 mmol/L (21-32); Bilirubin Direct 0.3 mg/dL (0-0.2); Bilirubin Total 0.7 mg/dL (0.2-1.0); Glucose Level 107 mg/dL (74-106); Magnesium 1.8 mg/dL (1.8-2.4); NT PRO-BNP 1887 pg/mL (<125); Potassium 4.3 mmol/L (3.5-5.1); Protein, Total 6.4 g/dL (6.4-8.2); Sodium Level 143 mmol/L (136-145); Troponin (Emerg Dept Use Only) < 0.02 ng/mL (0.0-0.045)
--- NOTE | 2020-05-02 16:47 | EDPHYS ---
Physician Documentation [facility] Name: Shay Bearden Age: 75 yrs Sex: Male : 1945 Arrival Date: 05/02/2020 Time: 11:01 Bed 15 Private MD: ED Physician Stepan Hancock HPI: 05/02 14:35 This 75 yrs old Male presents to ER via Ambulatory with complaints of Leg jr8 Swelling. 14:35 Patient stated that he has been having increased fluid retention diffusely. Now to the jr8 point where he is getting pain. Saw vein specialist the other day and stated that he does have some degree of venous insufficiency . Severity of symptoms: At their worst the symptoms were moderate in the emergency department the symptoms are unchanged. It is unknown whether or not the patient has had similar symptoms in the past. The patient has been recently seen by a physician:. Historical: - Allergies: 11:06 Sulfa (Sulfonamide Antibiotics); ll1 - PMHx: 11:06 CVA; Hypertension; ll1 - PSHx: 11:06 None; ll1 - Immunization history:: Flu vaccine is not up to date. Client reports receiving the 1st dose of the Covid vaccine. - Social history:: Smoking status: Patient denies any tobacco usage or history of. ROS: 14:35 Eyes: Negative for injury, pain, redness, and discharge, ENT: Negative for injury, jr8 pain, and discharge, Neck: Negative for injury, pain, and swelling, Cardiovascular: Negative for chest pain, palpitations, and edema, Respiratory: Negative for shortness of breath, cough, wheezing, and pleuritic chest pain, Abdomen/GI: Negative for abdominal pain, nausea, vomiting, diarrhea, and constipation, Back: Negative for injury and pain, Neuro: Negative for headache, weakness, numbness, tingling, and seizure. 14:35 MS/extremity: Positive for pain, swelling. 14:35 Skin: Positive for erythema, rash. Exam: 14:35 Eyes: Pupils equal round and reactive to light, extra-ocular motions intact. Lids and jr8 lashes normal. Conjunctiva and sclera are non-icteric and not injected. Cornea within normal limits. Periorbital areas with no swelling, redness, or edema. ENT: Nares patent. No nasal discharge, no septal abnormalities noted. Tympanic membranes are normal and external auditory canals are clear. Oropharynx with no redness, swelling, or masses, exudates, or evidence of obstruction, uvula midline. Mucous membranes moist. Neck: Trachea midline, no thyromegaly or masses palpated, and no cervical lymphadenopathy. Supple, full range of motion without nuchal rigidity, or vertebral point tenderness. No Meningismus. Respiratory: Lungs have equal breath sounds bilaterally, clear to auscultation and percussion. No rales, rhonchi or wheezes noted. No increased work of breathing, no retractions or nasal flaring. Abdomen/GI: Soft, non-tender, with normal bowel sounds. No distension or tympany. No guarding or rebound. No evidence of tenderness throughout. Back: No spinal tenderness. No costovertebral tenderness. Full range of motion. MS/ Extremity: Pulses equal, no cyanosis. Neurovascular intact. Full, normal range of motion. Neuro: Awake and alert, GCS 15, oriented to person, place, time, and situation. Cranial nerves II-XII grossly intact. Motor strength 5/5 in all extremities. Sensory grossly intact. Cerebellar exam normal. Normal gait. 14:35 Cardiovascular: Rate: normal, Rhythm: regular, Pulses: Pulses are 1+ in right dorsalis pedis artery and left dorsalis pedis artery. Pulses are 2+ in right radial artery and left radial artery. Heart sounds: normal, normal S1and S2, no S3 or S4, no murmur, no rub, no gallop, Edema: 2+ edema to level of left midcalf, left ankle, left foot, right midcalf, right ankle and right foot, non pitting edema to upper legs noted. 14:35 Skin: Patient has diffuse redness with excoriations and dryness. Some petechia noted to abdomen . 15:42 ECG was reviewed by the Attending Physician. jr8 Vital Signs: 11:07 BP 145 / 92; Pulse 87; Resp 20; Temp 97.9; Pulse Ox 97% ; Weight 87.54 kg; Height 6 ft. ll1 0 in. (182.88 cm); Pain 3/10; 16:00 BP 102 / 46; Pulse 78; Resp 19; Pulse Ox 100% on R/A; hb 17:00 BP 112 / 58; Pulse 74; Resp 18; Pulse Ox 100% on R/A; hb 11:07 Body Mass Index 26.18 (87.54 kg, 182.88 cm) ll1 MDM: 14:08 Patient medically screened. [facility] 16:41 Data reviewed: vital signs, nurses notes, lab test result(s), EKG, radiologic studies, jr8 plain films. Data interpreted: Pulse oximetry: on room air is 100 %. Interpretation: normal. Counseling: I had a detailed discussion with the patient and/or guardian regarding: the historical points, exam findings, and any diagnostic results supporting the discharge/admit diagnosis, lab results, radiology results, the need for outpatient follow up, a director of diagnostic imaging, a family practitioner, to return to the emergency department if symptoms worsen or persist or if there are any questions or concerns that arise at home. ED course: Discussed case with patient. No cardiac, electrolyte, kidney, or liver function. Patient feeling better. Started to diurese. Will add steroids at home for dermatitis. Needs to f/u with PCP and Cardiology. Patient has been on no new meds that would worsen his dermatologic condition. Patient good with this and will f/u. Knows to come back if worse . 05/02 14:22 Order name: Basic Metabolic Panel [facility] 05/02 14:22 Order name: CBC with Diff [facility] 05/02 14:22 Order name: LFT's; Complete Time: 15:40 [facility] 05/02 14:22 Order name: Magnesium; Complete Time: 15:40 [facility] 05/02 14:22 Order name: NT PRO-BNP; Complete Time: 15:40 [facility] 05/02 14:22 Order name: PT-INR; Complete Time: 15:40 [facility] 05/02 14:22 Order name: Troponin (emerg Dept Use Only); Complete Time: 15:40 [facility] 05/02 14:22 Order name: XRAY Chest (1 view); Complete Time: 23:21 [facility] 05/02 14:22 Order name: EKG; Complete Time: 14:23 [facility] 05/02 14:23 Order name: Basic Metabolic Panel; Complete Time: 15:40 EDMS 05/02 14:23 Order name: CBC with Automated Diff; Complete Time: 15:09 EDMS 05/02 16:33 Order name: Urine Dipstick--Ancillary (enter results); Complete Time: 16:59 bd 05/02 14:22 Order name: Cardiac monitoring; Complete Time: 14:59 jr8 05/02 14:22 Order name: EKG - Nurse/Tech; Complete Time: 14:58 05/02 14:22 Order name: IV Saline Lock; Complete Time: 1458 05/02 14:22 Order name: Labs collected and sent; Complete Time: 05/02 14:22 Order name: O2 Per Protocol; Complete Time: 05/02 14:22 Order name: O2 Sat Monitoring; Complete Time: : EC:42 Rate is 89 beats/min. Rhythm is regular, Sinus Rhythm. QRS Sultan is Normal. FL interval jr8 is normal at 146 msec. QRS interval is normal at 68 msec. QT interval is normal at 366 msec. No Q waves. T waves are Flattened in leads III, aVF. No ST changes noted. Clinical impression: NSR w/ Non-specific ST/T Changes. Interpreted by me. Reviewed by me. Administered Medications: 14:58 Drug: Lasix 60 mg Route: IVP; Site: right antecubital; hb 14:59 Drug: SOLU-Medrol 125 mg Route: IVP; Site: right antecubital; hb Disposition: 19:57 Co-signature as Attending Physician, Stepan Hancock MD I agree with the assessment and geovani plan of care. Disposition: 05/02/20 16:46 Discharged to Home. Impression: Lower Extremity Edema, Dermatitis, unspecified. - Condition is Stable. - Discharge Instructions: Edema, Rash. - Prescriptions for Prednisone 20 mg Oral Tablet - take 2 tablets by ORAL route once daily for 7 days; 14 tablet. - Medication Reconciliation Form, Thank You Letter, Antibiotic Education, Prescription Opioid Use form. - Follow up: Fili Mena MD; When: 2 - 3 days; Reason: Recheck today's complaints, Continuance of care, Re-evaluation by your physician. - Problem is new. - Symptoms have improved. Signatures: Dispatcher [employer] Stepan George MD MD cha Smirch, Shelby, RN RN Markie Vasquez, PA PA jr8 Joyce Morgan RN RN Yani Faye RN RN ll1 Corrections: (The following items were deleted from the chart) 17:30 16:46 05/02/2020 16:46 Discharged to Home. Impression: Lower Extremity Edema; ss Dermatitis, unspecified. Condition is Stable. Forms are Medication Reconciliation Form, Thank You Letter, Antibiotic Education, Prescription Opioid Use. Follow up: Fili Mena; When: 2 - 3 days; Reason: Recheck today's complaints, Continuance of care, Re-evaluation by your physician. Problem is new. Symptoms have improved. jr8
--- NOTE | 2020-05-02 16:47 | ER ---
Nurse's Notes [facility] Name: Shay Bearden Age: 75 yrs Sex: Male : 1945 Arrival Date: 05/02/2020 Time: 11:01 Bed 15 Private MD: Diagnosis: Lower Extremity Edema;Dermatitis, unspecified Presentation: 05/02 11:07 Coronavirus screen: Client denies travel out of the [place] in the last 14 days. At this ll1 time, the client does not indicate any symptoms associated with coronavirus-19. Ebola Screen: Patient denies travel to an Ebola-affected area in the 21 days before illness onset. Initial Sepsis Screen: Does the patient meet any 2 criteria? No. Patient's initial sepsis screen is negative. Does the patient have a suspected source of infection? Yes: Other: leg swelling. Risk Assessment: Do you want to hurt yourself or someone else? Patient reports no desire to harm self or others. Onset of symptoms was April 17, 2020. 11:07 Method Of Arrival: Ambulatory ll1 11:07 Acuity: DIDI 3 ll1 11:09 Chief complaint: Patient states: Bilateral leg swelling for 2 weeks. Reports clear ll1 drainage at times. Both arms are red and swollen also. No fever. Has wraps in place to BLE for lymphedema. Historical: - Allergies: 11:06 Sulfa (Sulfonamide Antibiotics); ll1 - PMHx: 11:06 CVA; Hypertension; ll1 - PSHx: 11:06 None; ll1 - Immunization history:: Flu vaccine is not up to date. Client reports receiving the 1st dose of the Covid vaccine. - Social history:: Smoking status: Patient denies any tobacco usage or history of. Screenin:01 Abuse screen: Denies threats or abuse. Denies injuries from another. Nutritional hb screening: No deficits noted. Tuberculosis screening: No symptoms or risk factors identified. Fall Risk None identified. Assessment: 14:59 General: Appears in no apparent distress. Behavior is calm, cooperative. Pain: Pain hb currently is 4 out of 10 on a pain scale. Neuro: Level of Consciousness is awake, alert, obeys commands, Oriented to person, place, time, situation. Cardiovascular: Capillary refill < 3 seconds Patient's skin is warm and dry. Respiratory: Respiratory effort is even, unlabored, Respiratory pattern is regular, symmetrical. GI: No signs and/or symptoms were reported involving the gastrointestinal system. : No signs and/or symptoms were reported regarding the genitourinary system. EENT: No signs and/or symptoms were reported regarding the EENT system. Derm: Skin is pink, warm \T\ dry. Rash noted that is macular, red, scaly, diffuse. Musculoskeletal: Reports BLE pain. 16:16 Reassessment: Patient appears in no apparent distress at this time. Patient and/or hb family updated on plan of care and expected duration. Pain level reassessed. Patient is alert, oriented x 3, equal unlabored respirations, skin warm/dry/pink. 17:00 Reassessment: Patient appears in no apparent distress at this time. Patient and/or hb family updated on plan of care and expected duration. Pain level reassessed. Patient is alert, oriented x 3, equal unlabored respirations, skin warm/dry/pink. Vital Signs: 11:07 BP 145 / 92; Pulse 87; Resp 20; Temp 97.9; Pulse Ox 97% ; Weight 87.54 kg; Height 6 ft. ll1 0 in. (182.88 cm); Pain 3/10; 16:00 BP 102 / 46; Pulse 78; Resp 19; Pulse Ox 100% on R/A; hb 17:00 BP 112 / 58; Pulse 74; Resp 18; Pulse Ox 100% on R/A; hb 11:07 Body Mass Index 26.18 (87.54 kg, 182.88 cm) ll1 ED Course: 11:01 Patient arrived in ED. ds1 11:06 Arm band placed on. ll1 11:07 Triage completed. ll1 11:08 Patient notified of wait time. ll1 14:07 Markie Vasquez PA is PHCP. jr8 14:07 Stepan Hancock MD is Attending Physician. jr8 14:25 Joyce Morgan, DREW is Primary Nurse. hb 14:35 Missed attempt(s): 22 gauge in right forearm. jp3 14:45 Missed attempt(s): 20 gauge in right Bleeding controlled, band aid applied, catheter jp3 tip intact. 14:50 Initial lab(s) drawn, by me, sent to lab. EKG done, by ED staff, reviewed by Markie DEVLIN. Inserted saline lock: 20 gauge in right antecubital area, using aseptic technique. Blood collected. 14:50 Patient maintains SpO2 saturation greater than 95% on room air. jp3 14:58 Placed in gown. Bed in low position. Call light in reach. Side rails up X2. Warm jp3 blanket given. Verbal reassurance given. Elevated leg. pediatric acute care unit nurse on. Pulse ox on. NIBP on. 15:03 XRAY Chest (1 view) In Process Unspecified. EDMS 16:46 Fili Mena MD is Referral Physician. jr8 17:22 No provider procedures requiring assistance completed. IV discontinued, intact, hb bleeding controlled, No redness/swelling at site. Administered Medications: 14:58 Drug: Lasix 60 mg Route: IVP; Site: right antecubital; hb 14:59 Drug: SOLU-Medrol 125 mg Route: IVP; Site: right antecubital; hb Outcome: 16:46 Discharge ordered by MD. jr8 17:22 Discharged to home ambulatory. hb 17:22 Condition: stable 17:22 Discharge instructions given to patient, Instructed on discharge instructions, follow up and referral plans. medication usage, Demonstrated understanding of instructions, follow-up care, medications, Prescriptions given X 1. 17:30 Patient left the ED. ss Signatures: Dispatcher [employer] EDKY Lynda León ds1 Svitlana Vázquez RN RN Markie Pacheco PA PA jr8 Joyce Morgan RN RN George Choi jp3 Yani Faye, RN RN ll1 Corrections: (The following items were deleted from the chart) 11:10 11:09 Chief complaint: Patient states: Bilateral leg swelling for 2 weeks. Reports ll1 clear drainage at times. Both arms are red and swollen also. No fever. ll1
[2020-05-02 16:51] LABS: Urine Blood NEGATIVE (NEG); Urine Glucose NEGATIVE (NEG); Urine Protein NEGATIVE (NEG)
--- NOTE | 2020-05-02 17:28 | RAD REPORT ---
EXAM DESCRIPTION: RAD - Chest Single View - 05/02/2020 3:03 pm CLINICAL HISTORY: DYSPNEA Chest pain. COMPARISON: <Comparisons> FINDINGS: Portable technique limits examination quality. Mild interstitial pulmonary edema seen. The heart is moderately enlarged in size. No displaced fractu res. IMPRESSION: Mild CHF.
[2020-05-02 17:38] VITALS: TEMP 97.9
[2020-05-02 17:39] VITALS: O2SAT 100
[2020-05-02 17:40] VITALS: BP 112/58
--- NOTE | 2020-05-04 05:05 | EKG ---
Test Date: 2020-05-02 Test Time: 14:50:04 Nonprofit Manager: HB MEASUREMENT RESULTS: Intervals: Rate: 89 SD: 146 QRSD: 68 QT: 366 QTc: 445 [place]: P: 58 SD: 146 QRS: 10 T: 4 INTERPRETIVE STATEMENTS: Normal sinus rhythm Low voltage QRS Possible Inferior infarct, age undetermined Abnormal ECG Compared to ECG 03/28/2019 16:01:28 Low QRS voltage now present Myocardial infarct finding now present T-wave abnormality no longer present Electronically Signed On 05-04-20 05:03:52 MOLD CUTTING MACHINE OPERATOR by Fili Mena
== END 2020-05-02 17:30 | disposition home or self-care (01) ==
LOC: ER 10:59
DX: L30.9 Dermatitis, unspecified (principal); I10 Essential (primary) hypertension; Z88.2 Allergy status to sulfonamides
CPT/HCPCS: 93005; 85025; 80048; 36415; 83735; 85610; 80076; 81003; 84484; 83880; 71045; 96375; 96374; 99285; J1940 ×2; J2930

== ENCOUNTER 2021-03-31 13:11 | Emergency (ER) | payer OTHER ==
[2021-03-31] MEDS ORDERED: ALBUTEROL 2.5 MG/3 ML NEB SOL ONE (14:20)
[2021-03-31] MEDS ORDERED: HYDROCODONE/CHLORPHEN 5 ML/OSYR ONE (14:20)
[2021-03-31] MEDS ORDERED: METHYLPREDNISOLONE 125 MG INJ ONE (14:20)
[2021-03-31] MEDS ORDERED: IPRATROPIUM BROM 0.5MG/2.5ML ONE (14:21)
--- NOTE | 2021-03-31 14:39 | RAD REPORT ---
EXAM DESCRIPTION: RAD - Chest Pa And Lat (2 Views) - 03/31/2021 2:30 pm CLINICAL HISTORY: Cough;SOB Chest pain. COMPARISON: Chest Single View dated 05/02/2020; Chest Single View dated 12/24/2019; Chest Single View dated 03/28/2019; CHEST SINGLE VIEW dated 08/03/2014 FINDINGS: Hazy opacities are present in both lung bases, greater on the left, likely representing in filtrate/ pneumonia. The lungs are diffusely emphysematous. The heart is mildly enlarged in size. No displaced fractures.
[2021-03-31 16:00] LABS: SARS-COV-2 RT PCR POSITIVE (NEGATIVE)
--- NOTE | 2021-03-31 16:19 | ER ---
Nurse's Notes [facility] Name: Shay Bearden Age: 76 yrs Sex: Male : 1945 Arrival Date: 03/31/2021 Time: 13:13 Bed 19 Private MD: Hugo Alexander T Diagnosis: Pneumonia due to SARS-associated coronavirus Presentation: 03/31 13:22 Chief complaint: Patient states: cough, intermittent fever x 1 week, "I checked my jl7 oxygen and it got down to 88%, but it bounces all around.". Coronavirus screen: Vaccine status: Patient reports receiving the 2nd dose of the covid vaccine. Moderna cough unrelated to allergies, fever, Client presents with at least one sign or symptom that may indicate coronavirus-19. Standard/surgical mask placed on the client. Provider contacted for isolation considerations. Ebola Screen: No symptoms or risks identified at this time. Initial Sepsis Screen: Does the patient meet any 2 criteria? No. Patient's initial sepsis screen is negative. Does the patient have a suspected source of infection? No. Patient's initial sepsis screen is negative. Risk Assessment: Do you want to hurt yourself or someone else? Patient reports no desire to harm self or others. Onset of symptoms was April 24, 2021. 13:22 Method Of Arrival: Ambulatory [facility] 13:22 Acuity: DIDI 3 jl7 Triage Assessment: 13:25 General: Appears in no apparent distress. uncomfortable, Behavior is calm, cooperative, jl7 appropriate for age. Pain: Denies pain. Historical: - Allergies: 13:25 Sulfa (Sulfonamide Antibiotics); jl7 - Home Meds: 13:25 Warfarin Oral [Active]; jl7 - PMHx: 13:25 CVA; Hypertension; jl7 - Immunization history:: Client reports receiving the 2nd dose of the Covid vaccine. - Social history:: Smoking status: Patient denies any tobacco usage or history of. Screenin:23 Abuse screen: Denies threats or abuse. Denies injuries from another. Nutritional wynn screening: No deficits noted. Tuberculosis screening: No symptoms or risk factors identified. Fall Risk None identified. Assessment: 14:23 Reassessment: pt reported fever off and on x 1 week. General: Appears in no apparent wynn distress. Respiratory: Reports cough that is productive. 14:31 Respiratory: Breath sounds with crackles bilaterally. wynn Vital Signs: 13:22 BP 100 / 63; Pulse 79; Resp 17; Temp 98.2; Pulse Ox 96% ; Weight 127.01 kg; Pain 0/10; jl7 ED Course: 13:13 Patient arrived in ED. as 13:13 Hugo Alexander MD is Private Physician. as 13:25 Triage completed. jl7 13:25 Arm band placed on right wrist. jl7 13:35 [facility]el[facility] Dodson [facility] pm1 13:35 Les Dior MD is Attending Physician. pm1 14:23 Patient has correct armband on for positive identification. Bed in low position. wynn 14:23 No provider procedures requiring assistance completed. wynn 14:30 Chest Pa And Lat (2 Views) XRAY In Process Unspecified. EDMS 16:12 Hugo Alexander MD is Referral Physician. pm1 16:50 Patient did not have IV access during this emergency room visit. wynn Administered Medications: 14:22 Drug: Albuterol 2.5 mg Route: Inhalation; wynn 14:22 Drug: Albuterol - atroVENT (ipratropium) (3:1) (2.5 mg - 0.5 mg) 3 ml Route: Nebulizer; wynn 14:22 Drug: SOLU-Medrol (methylPREDNISolone sodium succinate) 125 mg Route: IM; Site: right wynn gluteus; 14:22 Drug: Tussionex Pennkinetic ER (chlorpheniramine-hydrocodone) Suspension 5 ml Route: PO;wynn Outcome: 16:18 Discharge ordered by MD. pm1 16:50 Discharged to home ambulatory. wynn 16:50 Condition: good 16:50 Discharge instructions given to patient, Prescriptions given X 4. 16:50 Patient left the ED. wynn Signatures: Dispatcher [employer] EDMS Mckenzie Gustafson Patrick, NP MANAGER [employer] pm1 Ora Lyman RN RN jl7 Joyce Cooley RN RN wynn
--- NOTE | 2021-03-31 16:19 | EDPHYS ---
Physician Documentation [facility] Name: Shay Bearden Age: 76 yrs Sex: Male : 1945 Arrival Date: 03/31/2021 Time: 13:13 Bed 19 Private MD: Hugo Alexander T ED Physician Les Dior HPI: 03/31 13:59 This 76 yrs old Male presents to ER via Ambulatory with complaints of covid symptoms. pm1 13:59 The patient or guardian reports cough. Onset: The symptoms/episode began/occurred 1 pm1 week(s) ago. Severity of symptoms: in the emergency department the symptoms are actually worse. Modifying factors: The symptoms are alleviated by nothing, the symptoms are aggravated by nothing. Associated signs and symptoms: Pertinent positives: occasional fever, Pertinent negatives: chest pain, diarrhea, vomiting. The patient has not experienced similar symptoms in the past. The patient has not recently seen a physician. Patient's diagnosed with Covid. Historical: - Allergies: 13:25 Sulfa (Sulfonamide Antibiotics); jl7 - Home Meds: 13:25 Warfarin Oral [Active]; jl7 - PMHx: 13:25 CVA; Hypertension; jl7 - Immunization history:: Client reports receiving the 2nd dose of the Covid vaccine. - Social history:: Smoking status: Patient denies any tobacco usage or history of. ROS: 13:59 Eyes: Negative for injury, pain, redness, and discharge, ENT: Negative for injury, pm1 pain, and discharge, Cardiovascular: Negative for chest pain, palpitations, and edema. 13:59 Back: Negative for injury and pain, MS/Extremity: Negative for injury and deformity, Skin: Negative for injury, rash, and discoloration, Neuro: Negative for headache, weakness, numbness, tingling, and seizure. 13:59 Constitutional: Positive for fever, Negative for body aches, poor PO intake. 13:59 Respiratory: Positive for cough, shortness of breath. 13:59 All other systems are negative. Exam: 13:59 Constitutional: This is a well developed, well nourished patient who is awake, alert, pm1 and in no acute distress. Head/Face: Normocephalic, atraumatic. 13:59 Skin: Warm, dry with normal turgor. Normal color with no rashes, no lesions, and no evidence of cellulitis. MS/ Extremity: Pulses equal, no cyanosis. Neurovascular intact. Full, normal range of motion. 13:59 Cardiovascular: Exam negative for acute changes, Rate: normal, Rhythm: regular, Pulses: no pulse deficits are appreciated. 13:59 Respiratory: the patient does not display signs of respiratory distress, Respirations: no acute changes, Breath sounds: wheezing: expiratory that is mild, is heard diffusely. 13:59 Neuro: Exam negative for acute changes, Orientation: is normal, Mentation: is normal, Motor: is normal, moves all fours. Vital Signs: 13:22 BP 100 / 63; Pulse 79; Resp 17; Temp 98.2; Pulse Ox 96% ; Weight 127.01 kg; Pain 0/10; jl7 MDM: 13:43 Patient medically screened. pm1 16:02 ED course: Patient with wheezing present on evaluation, therefore will treat with pm1 steroids and breathing treatment. 16:11 Data reviewed: vital signs. Data interpreted: Pulse oximetry: on room air is 96 %. pm1 Interpretation: normal. Counseling: I had a detailed discussion with the patient and/or guardian regarding: the historical points, exam findings, and any diagnostic results supporting the discharge/admit diagnosis, lab results, radiology results, the need for outpatient follow up, to return to the emergency department if symptoms worsen or persist or if there are any questions or concerns that arise at home. 04 13:51 Order name: COVID-19/FLU A+B (Document "Date of Onset" if Symptomatic); Complete Time: pm1 16:02 02/04 13:51 Order name: Chest Pa And Lat (2 Views) XRAY; Complete Time: 15:17 pm1 Administered Medications: 14:22 Drug: Albuterol 2.5 mg Route: Inhalation; wynn 14:22 Drug: Albuterol - atroVENT (ipratropium) (3:1) (2.5 mg - 0.5 mg) 3 ml Route: Nebulizer; wynn 14:22 Drug: SOLU-Medrol (methylPREDNISolone sodium succinate) 125 mg Route: IM; Site: right wynn gluteus; 14:22 Drug: Tussionex Pennkinetic ER (chlorpheniramine-hydrocodone) Suspension 5 ml Route: PO;wynn Disposition: 17:07 Co-signature as Attending Physician, Les Dior MD I agree with the assessment and kdr plan of care. Disposition Summary: 03/31/21 16:18 Discharge Ordered Location: Home pm1 Problem: new pm1 Symptoms: have improved pm1 Condition: Stable pm1 Diagnosis - Pneumonia due to SARS-associated coronavirus pm1 Followup: pm1 - With: Emergency Department - When: As needed - Reason: Worsening of condition Followup: pm1 - With: Hugo Alexander MD - When: 2 - 3 days - Reason: Recheck today's complaints, Continuance of care, Re-evaluation by your physician Discharge Instructions: - Discharge Summary Sheet pm1 - COVID-19 pm1 - COVID-19 Frequently Asked Questions pm1 - 10 Things You Can Do to Manage Your COVID-19 Symptoms at Home - [facility] pm1 - COVID-19: Quarantine vs. Isolation - [facility] pm1 Forms: - Medication Reconciliation Form pm1 - Thank You Letter pm1 - Antibiotic Education pm1 - Prescription Opioid Use pm1 Prescriptions: - Ventolin HFA 90 mcg/actuation Inhalation HFA aerosol inhaler - inhale 1 puff by INHALATION route every 4-6 hours As needed; 1 Inhaler; pm1 Refills: 0, Product Selection Permitted - Zithromax Z-Clinton 250 mg Oral Tablet - take 1 tablet by ORAL route as directed for 5 days Day 1 - take two (2) tablets pm1 one time. Day 2, 3, 4 , 5 take one (1) tablet once daily.; 6 tablet; Refills: 0, Product Selection Permitted - Guaifenesin AC 10-100 mg/5 mL Oral Liquid - take 10 milliliters by ORAL route every 4 hours As needed; 240 milliliter; pm1 Refills: 0, Product Selection Permitted - Prednisone 20 mg Oral Tablet - take 3 tablets by ORAL route once daily for 5 days; 15 tablet; Refills: 0, pm1 Product Selection Permitted Signatures: Dispatcher [employer] EDME Les Dior MD MD kdr Marinas, Patrick, NP PARTS ADVISOR pm1 Ora Lyman RN RN jl7 Patricia-Joyce Self RN RN wynn
[2021-03-31 17:31] VITALS: BP 100/63; TEMP 98.2; O2SAT 96
== END 2021-03-31 16:50 | disposition home or self-care (01) ==
LOC: ER 13:11
DX: U07.1 COVID-19 (principal); J12.82 Pneumonia due to coronavirus disease 2019; I10 Essential (primary) hypertension; Z86.73 Personal history of transient ischemic attack (TIA), and cerebral infarction without residual deficits; Z79.01 Long term (current) use of anticoagulants; Z88.2 Allergy status to sulfonamides
CPT/HCPCS: 0240U; 71046; 94640; 96372; 99284; J2930

== ENCOUNTER 2022-01-15 11:00 | Day surgery (SDC) | payer OTHER ==
[2022-01-12 13:15] LABS: Absolute Lymphocytes (CBC) 1.4 K/uL (0.7-4.9); Hematocrit 39.3 % (39.6-49.0); Lymphocytes % 20.4 % (15.3-44.8); MCV 85.6 fL (80-100); MPV 7.3 fL (7.6-11.3); RBC Red Blood Cell Count 4.59 M/uL (4.33-5.43)
[2022-01-12 13:23] LABS: Protime INR 2.08
--- NOTE | 2022-01-12 13:43 | RAD REPORT ---
EXAM DESCRIPTION: RAD - Chest Pa And Lat (2 Views) - 01/12/2022 1:12 pm CLINICAL HISTORY: Pre op pending heart catheterization/carotid angio COMPARISON: Chest Pa And Lat (2 Views) dated 03/31/2021; Chest Single View dated 05/02/2020; Chest Singl e View dated 12/24/2019; Chest Single View dated 03/28/2019 FINDINGS: Lines: None. Lungs: No evidence of edema or pneumonia. Pleural: No significant pleural effusions or pneumothorax. Cardiac: The heart size is within normal limits. Mediastinum: Within normal limits. Bones: No acute fractures. Other: None IMPRESSION: No acute cardiopulmonary disease.
[2022-01-12 13:50] LABS: Potassium 4.5 mmol/L (3.5-5.1)
[2022-01-15] MEDS ORDERED: LIDOCAINE 1% 20 ML MDV ONE (11:08)
[2022-01-15] MEDS ORDERED: HEPA 1000U/500MLS 2,000 UNIT/1,000 ML BAG IV ONE (11:08)
[2022-01-15] MEDS ORDERED: NA CHLORIDE 0.9% 500 ML ONE (11:13)
[2022-01-15] MEDS ORDERED: MIDAZOLAM HCL 2 MG/2 ML INJ ONE (11:51)
[2022-01-15] MEDS ORDERED: HEPARIN 10,000 UNIT/10 ML VIAL IV ONE ×2 (11:51→13:29)
[2022-01-15] MEDS ORDERED: FENTANYL CITR 100 MCG/2 ML ONE (11:51)
[2022-01-15] MEDS ORDERED: ATROPINE SULF 1 MG/10 ML SYR IV ONE (11:52)
[2022-01-15] MEDS ORDERED: CLOPIDOGREL 75 MG TABLET ONE (13:24)
[2022-01-15] MEDS ORDERED: ASPIRIN 325 MG TAB ONE (13:26)
[2022-01-15] MEDS ORDERED: HEPA 1000U/500MLS 1,000 UNIT/500 ML BAG IV ONE (13:27)
--- NOTE | 2022-01-15 15:37 | EKG ---
Test Date: 2022-01-12 Test Time: 12:31:28 Brim Blocker: ELIAS MEASUREMENT RESULTS: Intervals: Rate: 63 AR: 170 QRSD: 74 QT: 322 QTc: 329 [place]: P: 12 AR: 170 QRS: 10 T: 113 INTERPRETIVE STATEMENTS: Sinus rhythm with occasional premature ventricular complexes Low voltage QRS Inferior infarct, age undetermined Abnormal ECG Compared to ECG 05/02/2020 14:50:04 Ventricular premature complex(es) now present Myocardial infarct finding still present Electronically Signed On 01-15-22 15:32:01 PREFORM MACHINE OPERATOR by Franklin Robin
[2022-01-15 16:10] VITALS: BP 153/77; O2SAT 99
--- NOTE | 2022-01-15 21:51 | OP ---
Date of Procedure: 01/15/2022 Surgeon: ADEOLA GIBBONS Procedures Performed: 1.Selective coronary angiogram. 2.Bilateral carotid angiogram. 3.Percutaneous coronary intervention of severe mid left anterior descending/diagonal 1 branch, bifur cating stenting used 3.0 x 28 mm drug-eluting stent in the left anterior descending and 2.75 x 20 mm drug-eluting stent in D1 in a reversed culotte technique with bilateral inflation kissing balloons. I used 2.75 x 20 mm NC balloon and both arteries with excellent angiographic results. Indication: 1.Abnormal stress test with chest pain. 2.Carotid stenosis by Doppler with history of TIAs. Access: Right femoral artery 6-Latvian closed with 6-Latvian Angio-Seal. Complications: None. Anesthesia: Total sedation time was 75 minutes. Used fentanyl, Versed. Estimated Blood Loss: Bleeding less than 50 mL. Total Contrast Used: 130 mL. Description Of Procedure: After risks, benefits, alternatives were explained, patient agreed to proc edure and signed informed consent. Patient was brought in to cardiac catheterization laboratory, pre pped and draped in usual sterile fashion. Then, I accessed the right femoral artery using micropunct ure kit and ultrasound guidance and fluoroscopy, placed a 4-Latvian Elton sheath and took a 4-Frenc h 3DRC catheter into the aortic root, engaged the right common carotid and then the left common carot id and took standard views and exchanged for a 4-Latvian JL4 catheter, engaged left main, took standar d views, and exchanged for 6-Latvian JR4 catheter, engaged the RCA, took standard views and then decid ed to intervene on the LAD. Intervention Details: We gave systemic heparin to assure ACT level above 250, gave 600 mg of Plavix and 325 mg aspirin and then I took a 6-Latvian EBU 3.5 guide into the aortic root, engaged left main. I took a short Runthrough wire into the LAD and another Runthrough wire into the diagonal branch. P re-dilated the LAD lesion and expanded very well and placed 3.0 x 28 mm stent. The diagonal branch o stially was significantly. It had initially about 60% to 70% and became almost 90% and decided to do reverse culotte. I took a balloon, dilated the diagonal with good results, and then placed 2.75 x 2 0 mm Synergy drug-eluting stent and then did bilateral inflation kissing with excellent results angio graphically. I removed the wire and took final angiogram. It was satisfactory. I removed the guide and the sheath and placed a 6-Latvian Angio-Seal for closure with good hemostasis. Patient was sent into recovery in a stable condition. Findings: 1.Left main is large and normal. 2.LAD mid 80% stenosis at the bifurcation of diagonal 1 branch. Diagonal branch has 60% to 70%, whi ch became worse after stenting the LAD. Status post bifurcation stenting and bilateral kissing infla tion as above. Within the LAD, luminal irregularities and both diagonal branches appears okay after the ostium of the D1 stenosis. 3.Left circumflex, moderate size vessel and normal. 4.RCA is large and dominant with mid 30% stenosis mid to distal. Carotid angiogram: 1.Right common carotid artery is normal, the right internal carotid artery has 50% stenosis proximal ly, and the right external carotid artery appears normal. 2.Left common carotid artery is normal and then, the left internal carotid artery has about 50% sten osis proximally and the left external carotid artery is normal. Conclusion: 1.Severe mid LAD/diagonal 1 branch stenosis, status post bifurcation stenting as outlined above succ essfully. 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 3.Moderate bilateral carotid stenosis, which we treated medically. Plan: Aspirin, Plavix, high-dose statin. Follow up with me in the office in 1 week. SR/ROMY Voice ID: [id number] Report ID: [id number]
== END 2022-01-15 17:25 | disposition home or self-care (01) ==
LOC: CCL 11:00
PROVIDERS: ATTEND Internal Medicine
DX: I25.10 Atherosclerotic heart disease of native coronary artery without angina pectoris (principal); I65.23 Occlusion and stenosis of bilateral carotid arteries; I10 Essential (primary) hypertension; E78.5 Hyperlipidemia, unspecified; Z88.2 Allergy status to sulfonamides; Z87.891 Personal history of nicotine dependence
CPT/HCPCS: 93005; 85025; 80048; 36415; 85610; 85347 ×3; 85730; 71046; 93454; 36222; 76937; C1893; Q9966; C1760; C1725; C9600; J2250; J3010; J7040; J1644 ×2; C9601; J0461